=== PATIENT | female | born 1960 | race Asian ===

== ENCOUNTER 2024-12-25 10:08 | Day surgery (SDC) | payer OTHER, SELFPAY ==
[2024-12-25] VITALS (10 sets, daily range): BP systolic 146–170; BP diastolic 69–87; BMI 34.7
[2024-12-25 12:00] LABS: Glucose - Point of Care 109 mg/dl (70-99)
--- NOTE | 2024-12-25 17:40 | ITS.CL.PN ---
Spr[employer]er - Procedure Note
Procedure
Procedure Note:
CARDIAC CATHETERIZATION REPORT
Date of Procedure: 12/25/2024
Referring: Dr. Cullen Neves MD
Indication: symptomatic severe aortic valve stenosis
PROCEDURE(S)
1. right heart catheterization
2. left heart catheterization
3. coronary angiography
ACCESS
1. 6F right radial artery (closure: radial band)
2. 5F right antecubital vein (closure: manual hemostasis)
CATHETERS
1. 5F [place]
2. 6F JR4
3. 6F JL3.5
3. 6F [place]
MODERATE SEDATION: 35 minutes of moderate sedation was utilized. An independent medical office asst was present to assist with and help manage the patient's level of consciousness and physiologic status.
HEMODYNAMIC DATA
LV 191/14 (EDP 21) mmHg
AO 155/83 (mean 115) mmHg
RA 14 mmHg
RV 43/12 (EDP 17) mmHg
PA 41/21 (mean 30) mmHg
PCWP 22 mmHg
SaO2 94.7%
SvO2 64.7%
Hb 11.6 g/dL
CO/CI 4.68/2.64 L/min/m2
SVR 1725 dsc*-5
PVR 1.7 Wood units
Valve Study: Mean gradient of 34.6 mmHg at a heart rate of 80 bpm giving a stroke-volume index of 33 mL/m2 and a calculated valve area of 0.72 cm� (indexed valve area 0.41 cm2/m2)
CORONARY ANGIOGRAPHY
Dominance: Right
LM: Large with no disease.
LAD: Large vessel giving rise to 2 small diagonal branches and wrapping around the apex. There are mild luminal irregularities only.
LCx: Large caliber vessel giving rise to a single large caliber branching OM1. There are mild luminal irregularities only.
RCA: Moderate caliber vessel giving rise to a small RPDA. There are mild luminal irregularities only.
RADIATION: dose 344 mGy; DAP 25.1 Gy*cm2; fluoroscopy time 11.3 min
CONCLUSIONS
1. Trivial coronary artery disease as described
2. Mildly elevated biventricular filling pressures, moderate predominantly postcapillary pulmonary hypertension, and normal cardiac output.
2. Severe low-flow low gradient aortic valve stenosis
RECOMMENDATIONS
1. Proceed with workup for aortic valve replacement with TAVR protocol CT scan including aortic valve calcium scoring to help corroborate severity of low flow low gradient
2. Primary prevention of coronary artery disease
Copy to: Dr. Cullen Neves MD (doll surgeon); Dr. Moon Cam MD (PCP)
Signed: Bert Barnard MD, PhD
== END 2024-12-25 19:15 | disposition home or self-care (01) ==
LOC: CATH 10:08
PROVIDERS: ATTENDING PHYSICIAN Internal Medicine Cardiovascular Disease; FAMILY PHYSICIAN Internal Medicine
DX: I35.0 Nonrheumatic aortic (valve) stenosis (principal); I27.20 Pulmonary hypertension, unspecified; Z79.82 Long term (current) use of aspirin; Z79.84 Long term (current) use of oral hypoglycemic drugs; Z79.899 Other long term (current) drug therapy
CPT/HCPCS: 99152; 99153; C1769 ×2; C1894; 82962; 93460; Q9967

== ENCOUNTER → 2025-01-08 09:14 | Outpatient (REF) | payer OTHER, SELFPAY | LOC: RAD 09:14 | PROVIDERS: ATTENDING PHYSICIAN Nurse Practitioner Acute Care; FAMILY PHYSICIAN Internal Medicine | DX: I35.0 Nonrheumatic aortic (valve) stenosis (principal) | CPT/HCPCS: 74174; 75572; Q9967 ==

== ENCOUNTER 2025-01-26 08:02 | Inpatient (IN) | payer OTHER, SELFPAY ==
[2025-01-19 12:15] VITALS: BMI 34.8
[2025-01-19 12:26] LABS: Hematocrit 37.6 % (37.0-47.0); Hemoglobin 12.4 g/dL (12.0-16.0); Mean Corp Hgb Conc. 33.0 g/dL (33.0-37.0); Mean Corpuscular Volume 77.0 fL (81.0-99.0); Nucleated Red Blood Cells % 0 %; Platelet Count 225 10^3/uL (130-400); Red Cell Dist. Width 14.6 % (11.5-14.5)
[2025-01-19 12:33] LABS: Urine Character Clear (Clear)
[2025-01-19 12:44] LABS: INR 0.99; PT 13.4 Sec (11.4-14.6)
[2025-01-19 12:54] LABS: ALT (SGPT) 22 U/L (0-35); AST (SGOT) 20 U/L (14-36); Albumin 4.5 g/dl (3.5-5.0); Alkaline Phosphatase 118 U/L (38-126); Blood Urea Nitrogen 11 mg/dl (7-17); Calcium 9.6 mg/dl (8.4-10.2); Carbon Dioxide 34 mmol/L (22-30); Chloride 99 mmol/L (98-107); Estimated Creatinine Clearance 87 ml/min; Glucose 183 mg/dl (70-99); Potassium 4.7 mmol/L (3.5-5.1); Sodium 138 mmol/L (135-145); Total Protein 8.3 g/dl (6.3-8.2); eGFR > 60.00
[2025-01-19 12:57] LABS: Glycohemoglobin (HgbA1c) 7.6 % (4.0-5.6)
[2025-01-19 13:20] LABS: Urine Squamous Cell >30 /LPF (Few)
[2025-01-19 13:21] LABS: Urine Urothelial Cell 21-25 /LPF (FEW)
[2025-01-19 13:24] LABS: Urine White Cell 40-50 /HPF (0-5)
[2025-01-19 13:28] LABS: Urine Red Blood Cell 0-2 /HPF (0-2)
--- NOTE | 2025-01-19 14:07 | CM ---
Chart reviewed. Met with the patient, son and daughter in PAT. Reviewed preoperative and postoperative instructions and restrictions, along with showering guidelines. Gave patient 2 soaps. Patient is agreeable to a home visit by CT Transitional
RN. Patient is independent of ADLS, lives with her , 2 daughters and sister in a 2 STH, 2 TRA, 0 DME. Plan is for the patient to return home with CT Transitional RN. CM to follow
[2025-01-26] VITALS (12 sets, daily range): BP systolic 71–166; BP diastolic 54–93; BMI 34.6
[2025-01-26] MEDS: MAGNESIUM OXIDE 400 MG PO (08:42)
[2025-01-26] MEDS: LOPRESSOR 25 MG PO (08:42)
[2025-01-26] MEDS: PROTONIX 40 MG PO (08:42)
[2025-01-26] MEDS: BACTROBAN 2% OINTMENT 1 APPLIC NASAL ×2 (08:44→20:03)
--- NOTE | 2025-01-26 09:12 | PTCARENOTE ---
pt admitted into CVICU room 2268. pt confirmed 2 showers at home. pt clipped and prepped for CVOR. pre-op education provided. pre-op meds given. med rec completed. all questions answered. production mechanic tin cans to CVOR.
--- NOTE | 2025-01-26 09:26 | W.CVOR.SURPR ---
CVOR Surgeon Immed Pre Op
-
I have examined this patient prior to performance of the scheduled procedure.
The patient's condition is unchanged from the time of the dictated/written History and
Physical and the patient is able to undergo the scheduled procedure.
SAVR +/- root enlargement + LAAE
--- NOTE | 2025-01-26 11:43 | CM ---
Chart reviewed Patient is in the OR today. Patient is independent of ADLS, lives with her , 2 daughters and sister in a 2 STH, 2 TRA, 0 DME. Plan is for the patient to return home with CT Transitional RN. CM to follow
[2025-01-26 11:53] LABS: ACT+ - POC 145 Seconds (82-134)
[2025-01-26 12:23] LABS: Urine Character Slightly Cloudy (Clear)
[2025-01-26 12:37] LABS: Urine Squamous Cell >30 /LPF (Few)
[2025-01-26 12:38] LABS: Urine Red Blood Cell 0-2 /HPF (0-2)
[2025-01-26 13:10] LABS: ACT+ - POC 704 Seconds (82-134)
[2025-01-26 13:22] LABS: B.E. - POC 0.3 mmol/L; Glucose - POC 199 mg/dl (70-99); HCO3 - POC 27 mmol/L (21-28); Hematocrit - POC 36 % PCV (37-47); Hemodilution- POC Yes; Hemoglobin Calculated - POC 12.4; Ionized Calcium - POC 1.21 mmol/L (1.15-1.33); Lactate - POC 1.20 mmol/L (0.36-0.75); O2 Saturation %Calculated-POC 99.9 % (94-98); PCO2 - POC 48 mmHg (35-48); PO2 - POC 267 mmHg (83-108); POC Comment PRE; Potassium - POC 3.5 mmol/L (3.5-5.1); Sodium - POC 140 mmol/L (136-145); Specimen Type - POC Arterial; pH - POC 7.35 (7.35-7.45)
[2025-01-26 13:40] LABS: ACT+ - POC 919 Seconds (82-134)
[2025-01-26 13:52] LABS: B.E. - POC 6.2 mmol/L; Glucose - POC 214 mg/dl (70-99); HCO3 - POC 30 mmol/L (21-28); Hematocrit - POC 25 % PCV (37-47); Hemodilution- POC Yes; Hemoglobin Calculated - POC 8.6; Ionized Calcium - POC 0.93 mmol/L (1.15-1.33); Lactate - POC 1.84 mmol/L (0.36-0.75); O2 Saturation %Calculated-POC 99.9 % (94-98); PCO2 - POC 41 mmHg (35-48); PO2 - POC 332 mmHg (83-108); POC Comment CPB; Potassium - POC 4.5 mmol/L (3.5-5.1); Sodium - POC 136 mmol/L (136-145); Specimen Type - POC Arterial; pH - POC 7.48 (7.35-7.45)
[2025-01-26 14:03] LABS: ACT+ - POC 636 Seconds (82-134)
[2025-01-26 14:30] LABS: B.E. - POC 5.8 mmol/L; Glucose - POC 199 mg/dl (70-99); HCO3 - POC 30 mmol/L (21-28); Hematocrit - POC 28 % PCV (37-47); Hemodilution- POC Yes; Hemoglobin Calculated - POC 9.5; Ionized Calcium - POC 1.03 mmol/L (1.15-1.33); Lactate - POC 2.43 mmol/L (0.36-0.75); O2 Saturation %Calculated-POC 99.8 % (94-98); PCO2 - POC 42 mmHg (35-48); PO2 - POC 202 mmHg (83-108); POC Comment WARM; Potassium - POC 4.1 mmol/L (3.5-5.1); Sodium - POC 138 mmol/L (136-145); Specimen Type - POC Arterial; pH - POC 7.46 (7.35-7.45)
[2025-01-26 14:32] LABS: ACT+ - POC 181 Seconds (82-134)
[2025-01-26 14:50] LABS: B.E. - POC 0.2 mmol/L; Glucose - POC 203 mg/dl (70-99); HCO3 - POC 25 mmol/L (21-28); Hematocrit - POC 28 % PCV (37-47); Hemodilution- POC Yes; Hemoglobin Calculated - POC 9.4; Ionized Calcium - POC 1.35 mmol/L (1.15-1.33); Lactate - POC 4.97 mmol/L (0.36-0.75); O2 Saturation %Calculated-POC 99.9 % (94-98); PCO2 - POC 39 mmHg (35-48); PO2 - POC 350 mmHg (83-108); POC Comment POST; Potassium - POC 4.4 mmol/L (3.5-5.1); Sodium - POC 133 mmol/L (136-145); Specimen Type - POC Arterial; pH - POC 7.42 (7.35-7.45)
[2025-01-26 14:51] LABS: ACT+ - POC 126 Seconds (82-134)
--- NOTE | 2025-01-26 15:03 | W.PN.CT.SURG ---
CT Surgery Operative Note
-
CARDIAC SURGERY OPERATIVE REPORT
Preoperative Diagnosis: Bicuspid aortic valve morphology, severe aortic valve stenosis, symptomatic
Postoperative Diagnosis: Same
Procedure(s) Performed:
1. Standard sternotomy with aortic and right atrial cannulation
2. Surgical aortic valve replacement [23 mm bioprosthesis]
3. Placement of temporary atrial ventricular pacing wires
4. Transesophageal echocardiography
Date of Surgery: 01/26/25
Comorbidities:
1. Severe aortic valve stenosis, symptomatic
2. Bicuspid valve morphology, type I
3. Hypertension
4. Hyperlipidemia
5. Diabetes
6. Arthritis
Attending Surgeon: Luiz Landry MD, MS
Assistants: Liudmila Albert PA-C (present and necessary to cutter first, retraction, suction, exposure, suture management, and wound closure under my direction)
Anesthesiology: Osmin Keen MD and Leobardo Smalls CRNA
Scrub and Circulating RNs: Foster Alfonso, HEAVENLY, Mitch Jackson RN
Telecommunications Manager: Fly Hanna CCP
Anesthesia: GETA
EBL: per perfusion records
Products: None
CPB Time: 64 minutes
Aortic Cross Clamp Time: 50 minutes
Indication(s) for Procedures: This is a 64-year-old female with shortness of breath. She was found to have bicuspid valve morphology and severe symptom medic stenosis. She was discussed at our multidisciplinary team clinic and overall consensus
was that she would be better off with a surgical valve as part of her lifetime management
Aortic Valve Description: Monique 1 bicuspid morphology, left right fusion with heavy calcification towards the free margin of the leaflets and the raphae. Some calcification towards the annulus at the noncoronary cusp.
Findings: Her left ventricular ejection fraction preoperatively 60% with no significant regional wall motion abnormalities. Following surgery EF remained the same at 60% but with ventricular pacing she had a mild to moderate degree of mitral valve
insufficiency and a moderate to severe degree of tricuspid valve insufficiency. This improved significantly when she was AV pacing. Her aortic valve was heavily calcified towards the free margin of all cusps with some calcification towards the
raphae at the left right coronary cusp. A total of 11 nonpledgeted 2 Ethibond sutures placed circumferentially to secure a [address] with core knots. She had a trace amount of paravalvular leak before reversal of protamine
which disappeared with protamine. The mean gradient across her new aortic valve was 3 mmHg. She did not require any blood products, she did not require any inotropic support, and she was AV pacing at the conclusion of the case with a very slow
sinus rhythm.
Specimen(s): Aortic valve leaflets.
Prosthesis:
1. 23 mm Maldonado Inspiris Resilia aortic valve, serial #[id number]
Description of Procedure: The patient was taken to the operating room. Their identity and procedure to be performed were verified and they were positioned supine on the operating table. Induction via general anesthesia with endotracheal intubation
was performed and central venous access and arterial monitoring were inserted. A preoperative transesophageal echocardiogram was performed to assess cardiac function and valvular function. The patient was then prepped and draped from chin to feet in
a sterile fashion. A preoperative time-out was performed with all members of the team present. A midline chest incision was performed along with median sternotomy. The innominate vein was isolated. Full heparinization was given (a total of 50,000
units). We created a pericardial well. The aortic cannulation site was chosen where it was soft, pliable, and free of calcium. Cannulation was performed with an arterial cannula in the ascending aorta and a triple-stage venous cannula through the
right atrial appendage. The arterial cannula line had an appropriate bounce and correlating pressures with test dosing. Next, a root vent/antegrade cannula was inserted into the ascending aorta. The ACT was confirmed to be over 400 and retrograde
autologous priming was performed before commencing cardiopulmonary bypass. The pulmonary artery was away from the aorta to facilitate a clamp site and aortotomy. A left ventricular vent was placed at the right superior pulmonary vein and
secured. The aortic cross-clamp was placed after decreasing the flow on the bypass and mean arterial pressure. A total of 1.0L initial dose of antegrade Del-Nido cardioplegia solution was given and planned for re-dosing every 75 minutes as
necessary. There was rapid electro-mechanical arrest of the heart at 290 cc of cardioplegia. The left ventricle was observed for distention on echocardiogram and manual palpation. Cold slush was placed into a sponge and topically on the RV while we
systemically cooled to 34 degrees centigrade.
Carbon dioxide was used to flood the field. We manually identified the location of the right coronary take off. An aortotomy was made approximately 2cm above the sinotubular junction. The location of both left and right coronary vessels were
visualized in the root. The leaflets were excised and sent for pathological assessment. The annulus was debrided of any calcium being mindful of the annulus and membranous septum. The root and left ventricular outflow tract were thoroughly irrigated
to remove any debris. A total of 11 non-pledgeted 2-0 ethibond inverted annular sutures were placed [id number] circumferentially. These were brought through the sewing cuff of the prosthetic valve which as then parachuted into place. The left and
right coronary ostia were visualized and were unobstructed by the valve. A Cor-Knot device was used to secure the annular sutures. The valve was inspected and was well seated. The aortotomy was approximated with 4-0 prolene in two layers. De-airing
maneuvers were performed and temporary bipolar ventricular pacing wires were placed on the base of the right ventricle along with temporary atrial pacing wires at the SVC right atrial junction. The patient was placed in a Trendelenburg position and
flows on bypass were lowered. The aortic cross clamp was removed and flows were slowly brought back up. The aortotomy appeared hemostatic. Transesophageal echocardiography revealed no paravalvular leak and appropriate prosthetic function. Once
de-airing was satisfactory, the left ventricular and root vents were removed. After verifying acceptable parameters, we initiated weaning from cardiopulmonary bypass. Once we were off cardiopulmonary bypass, the venous cannula was clamped and
removed. A test dose of protamine was administered and the patient was monitored for any adverse reaction before resuming protamine. Once half of the protamine dose was delivered, pump suckers were turned off and the systolic blood pressure was
lowered for aortic decannulation. The aortic cannula was removed and pursestrings were tied down. All cannulation sites were oversewn with a 4-0 prolene. The aortotomy suture line was inspected and hemostasis was confirmed. Mediastinal hemostasis
was obtained. Two 24Fr Arie drains were placed within the pericardium. The sternum was approximated with 4#7 single and 3 #8 double stainless steel wires. Fascia was approximated with #1 vicryl suture. The subcutaneous, dermis and epidermis were
closed in layers in a running fashion. The skin wound was cleansed and dressed.
All instrument, sponge, and needle counts were confirmed to be correct x 2 at the end of the operation. The patient was transferred to the cardiac intensive care unit in critical but stable condition.
I, Dr. Luiz Landry, was present, scrubbed for, and performed all critical elements of this procedure.
Luiz Landry MD, MS
Cardiothoracic Surgeon
[facility]
This operative dictation was created using the [employer] dictation system. Please excuse any grammatical, typographical, or 'sound alike' errors
--- NOTE | 2025-01-26 15:17 | CON.INTV ---
Consultation
Consultation Request
Date/Time Consultation Requested: 01/26/2025 - 1438
Date/Time Consultation Performed: 01/26/2025 - 1501
Requesting Provider: Maritza Heck NP
Performing Provider: Dr. Del Cid
Reason for Consultation: s/p SAVR
Medical History
-
Chief Complaint: Elective aortic valve replacement
History of Present Illness:
64-year-old female with a past medical history of hypertension, hyperlipidemia, DM type II and arthritis who presents for elective aortic valve replacement. Patient known to the cardiothoracic surgery service, with last visit on 01/11/2025 with
Gris. Echo on 12/08/2024 showed mild�moderately hypertrophic LV with an EF of 65-70%, with heavily calcified aortic valve with reduced leaflet excursion, and mean gradient across the AV of 39.9. Left and right heart catheterization on 12/25/2024
showed a mean gradient across the aortic valve of 34.6, with trivial coronary artery disease and mildly elevated biventricular filling pressures with moderate predominantly postcapillary pulm hypertension and preserved cardiac output. She was
diagnosed with severe low-flow, low gradient aortic valve stenosis. Patient has been feeling shortness of breath with flight of steps and with light activity, with worsening SOB over the last year. Surgical intervention recommended and the patient
agreed to this procedure. Today, she underwent surgical aortic valve replacement with a 23 mm bioprosthesis. There were no immediate complications, and she was transferred to the CVICU postoperatively, with [employer] services consulted for
additional management/recommendations.
When I saw the patient, she was intubated on SIMV at 16/450/40%/5, with PIP 28 cmH2O, breathing at 16 breaths/min and VTe 450 cc. Currently on insulin drip at 4 units/hr, Levophed at 2 mcg/min, and sedated on Precedex at 0.5 mcg/kg/hr. She is AV
paced, otherwise she was bradycardic. Current heart rate 72, BP via A-line 93/52, PAP 25/15 and she is saturating 97%.
PMHx: Hypertension, hyperlipidemia, DM type II, arthritis
PSHx:
Past Medical History
Past Medical History: Other (Above as per HPI)
Past Surgical History: Other (Above as per HPI)
Social History
Tobacco: Non-smoker
Alcohol: None
Drug: None
Personal:
Living: With Family
Employment: Not Employed (Homemaker; now retired)
Family History
Family History: CAD (Brother (stent placed at age 45)) and Cancer (Mother: Breast cancer)
Allergies / Home Medications
Allergies
Allergy/AdvReac Type Severity Reaction Status Date / Time
almond Allergy GERD itchy Verified 01/18/25 15:49
throat/ears
apple Allergy GERD, Verified 01/18/25 15:49
itchy
throat/ears
atorvastatin Allergy Rash Verified 01/18/25 15:49
carrot Allergy GERD, Verified 01/18/25 15:49
itchy
throat/ears
martinez Allergy GERD itchy Verified 01/18/25 15:49
throat/ears
pecan nut Allergy GERD itchy Verified 01/18/25 15:49
throat/ears
Penicillins Allergy rash/hives Verified 01/18/25 15:49
lisinopril AdvReac cough Verified 01/18/25 15:49
Home Medications
�Medication �Instructions �Recorded �Confirmed �Last Taken �Type
amlodipine 5 mg tablet 10 mg PO DAILY Blood Pressure 12/25/24 01/26/25 01/25/25 21:00 History
aspirin 81 mg tablet 81 mg PO DAILY Blood Clot 12/25/24 01/26/25 01/24/25 21:00 History
Prevention/Tx
empagliflozin 25 mg tablet 25 mg PO DAILY Diabetes 12/25/24 01/26/25 01/11/25 History
(Jardiance)
glimepiride 4 mg tablet 4 mg PO BID Diabetes 12/25/24 01/26/25 01/24/25 21:00 History
hydrochlorothiazide 25 mg tablet 25 mg PO DAILY Blood Pressure 12/25/24 01/26/25 01/24/25 21:00 History
metformin 1,000 mg tablet 1,000 mg PO DAILY Diabetes 12/25/24 01/26/25 01/24/25 21:00 History
Held on 12/25/24.
Instructions: Resume on
12/27/24.
omeprazole 20 mg capsule,delayed 20 mg PO DAILY Gastrointestinal 12/25/24 01/26/25 01/24/25 21:00 History
release Issue
rosuvastatin 20 mg tablet 20 mg PO DAILY High Cholesterol 12/25/24 01/26/25 01/25/25 21:00 History
triamcinolone acetonide 0.5 % 1 applic topical BID Rash 12/25/24 01/26/25 01/05/25 History
topical cream
acetaminophen 325 mg tablet 325 mg PO ONCE PRN pain 01/18/25 01/26/25 01/05/25 History
(Tylenol)
cyanocobalamin (vitamin B-12) 1,000 mcg PO DAILY Supplement 01/18/25 01/26/25 01/24/25 21:00 History
1,000 mcg tablet
semaglutide 2 mg/dose (8 mg/3 mL) 2 mg SC QWEEK Diabetes 01/26/25 01/26/25 01/11/25 History
subcutaneous pen injector (Ozempic)
Review of Systems
-
Unable to Obtain full review of systems at this time due to: Patient Intubation
Vitals / Labs / Diagnostic Testing
Vital Signs
Temp Pulse Resp BP Pulse Ox
98.9 F 70 16 83/62 99
01/26/25 21:00 01/26/25 21:00 01/26/25 21:00 01/26/25 21:00 01/26/25 21:00
Lab Data
01/26/25 19:14
01/26/25 15:45
Laboratory Results
01/26/25
15:45
PT 18.7 H
INR 1.54
APTT 35.6 H
pH 7.41
pCO2 41 H
pO2 115 H
HCO3 26.0
O2 Delivery Level
Diagnostic Testing:
Physical Exam
-
HEENT: Normocephalic, Anicteric and Other (ETT in place)
Cardiovascular: S1/S2, Irregular Rhythm (Irregular at times), Peripheral Edema (negative) and Other (AV paced)
Respiratory: Wheeze (negative), Rales (negative), Rhonchi (negative), Non-Labored Respirations and Other (Mechanical breath sounds heard bilaterally)
GI: Soft, Non Distended, Non Tender and Normal Bowel Sounds
Neurology: Tremors (negative) and Other (Sedated)
Skin: Warm and Dry
General: Respiratory Distress (negative), Comfortable, Fever (negative) and Chills (negative)
Assessment
-
Assessment: 64-year-old female with a past medical history of hypertension, hyperlipidemia, DM type II and arthritis who presents for elective aortic valve replacement. Patient known to the cardiothoracic surgery service, with last visit on
01/11/[address] Landry. Echo on 12/08/2024 showed mild�moderately hypertrophic LV with an EF of 65-70%, with heavily calcified aortic valve with reduced leaflet excursion, and mean gradient across the AV of 39.9. Left and right heart
catheterization on 12/25/2024 showed a mean gradient across the aortic valve of 34.6, with trivial coronary artery disease and mildly elevated biventricular filling pressures with moderate predominantly postcapillary pulm hypertension and preserved
cardiac output. She was diagnosed with severe low-flow, low gradient aortic valve stenosis. Patient has been feeling shortness of breath with flight of steps and with light activity, with worsening SOB over the last year. Surgical intervention
recommended and the patient agreed to this procedure. On 01/26/2025, she underwent surgical aortic valve replacement with a 23 mm bioprosthesis. There were no immediate complications, and she was transferred to the CVICU postoperatively, with
[employer] services consulted for additional management/recommendations.
Chronic conditions TITLE INSPECTOR: Hypertension, hyperlipidemia, DM type II, arthritis
Impression:
#Bicuspid aortic valve morphology with severe, symptomatic aortic valve stenosis s/p surgical aortic valve replacement with 23 mm bioprosthesis (POD #0)
#Acute anemia due to above
#DM type II complicated by hyperglycemia (mild)
#Hypertension
#Hyperlipidemia
#Multinodular thyroid goiter causing slight displacement/compression of the esophagus and trachea to the right (per CT TAVR on 01/08/2025)
Plan:
Ventilator settings reviewed
FiO2 will be weaned to maintain SpO2 >90-94%
Minute ventilation will be adjusted
Arterial blood gases will be monitored
Spontaneous breathing trial will be attempted with hopeful extubation after anesthesia/sedation wear off
prn nebulized bronchodilators - not currently bronchospastic
Pulmonary artery catheter parameters will be followed
Pressors/antihypertensive/inotropes/diuretics will be provided as needed
Maintain MAP>65
Replete electrolytes with K>4, Mg>2
Monitor chest tube output
Monitor hemoglobin
Monitor platelet count and coags
Transfuse blood products as needed to maintain Hb>7g/dL, plt>50k (given post-operative status)
CT surgery managing chest tubes
Monitor blood sugar to maintain euglycemia with goal BG 110-140
Insulin drip per protocol
Aspiration precautions
VAP prevention protocol
DVT prophylaxis
Early nutrition
Early mobilization
Critical care statement: A total of 38 minutes of critical care time was provided for this patient today. This includes management of ventilator, spontaneous breathing trial, arterial blood gases, pressors, of unstable vital signs, evaluation of the
patient at bedside, reviewing the patient's pertinent medical records including radiographs, microbiology, laboratory evaluations, and discussion with primary team and critical care nursing.
Data:
CT TAVR 01/08/2025:
Multinodular thyroid goiter with mediastinal extension.
Hepatic steatosis.
Probable simple 1.4 cm right ovarian cyst. No dedicated follow-up is indicated per the 2019 Society of Radiologists in Ultrasound consensus statemen
[2025-01-26 15:45] LABS: Glucose - Point of Care 173 mg/dl (70-99)
[2025-01-26] MEDS: LR 250 ML IV (15:55)
[2025-01-26] MEDS: NSS 500 IV (15:55)
[2025-01-26] MEDS: NOVOLOG FLEXPEN SC ×2 (15:55→15:57)
[2025-01-26] MEDS: NEURONTIN PO ×2 (15:56→22:01)
[2025-01-26] MEDS: STERILE WATER FOR INJECTION 10 ML IV ×2 (15:56)
[2025-01-26] MEDS: PACERONE PO ×2 (15:56→22:01)
[2025-01-26] MEDS: VANCOCIN 200 IV (15:56)
[2025-01-26] MEDS: TYLENOL PO ×2 (15:56→22:02)
[2025-01-26] MEDS: AZACTAM 2000 MG IV ×2 (15:56)
[2025-01-26 15:57] LABS: B.E. 1.2 mmol/L; HCO3 26.0 mmol/L (21-28); O2 Saturation % 98.4 % (94-98); PCO2 41 mmHg (32-35); PO2 115 mmHg (83-108); Potassium 3.9 mMOL/L (3.5-5.1); Sodium 136 mMOL/L (136-145)
[2025-01-26 16:04] LABS: Hematocrit 28.1 % (37.0-47.0); Hemoglobin 9.2 g/dL (12.0-16.0); Platelet Count 162 10^3/uL (130-400)
[2025-01-26 16:09] LABS: INR 1.54; PT 18.7 Sec (11.4-14.6)
[2025-01-26 16:10] LABS: APTT 35.6 Sec (23.4-35.0)
[2025-01-26] MEDS: KCL 50 IV (16:19)
[2025-01-26 16:22] LABS: Blood Urea Nitrogen 11 mg/dl (7-17); Estimated Creatinine Clearance 87 ml/min; Glucose 170 mg/dl (70-99); Magnesium 2.7 mg/dl (1.6-2.3)
--- NOTE | 2025-01-26 16:35 | PTCARENOTE ---
assumed care of pt from CVOR into 2267, AV paced on tele via epicardial pacing wires which are set to DDI 72/17/20. + peripheral pulses, trace edema. Right IJ cordis w swan floated to 42. MARU CI/CO do to MARU tblood temp. PAP 28/14, CVP 10. LEft
radial deborah leveled and zeroed, bp 111/65. Lungs diminished, #8 ETT/ 22cm at right lip, VENT SETTINGS: SIMV 40%/450/16/+5 POX 99%. Mediastinal CTs x2 w red drainage. [place] draining clear yellow. CPOT 0 RASS -5.
Drips: Precedex 0.5 mcg/kg/hr
Insulin titrated per glycemic protocol
[2025-01-26 16:57] LABS: Glucose - Point of Care 184 mg/dl (70-99)
[2025-01-26 17:56] LABS: Glucose - Point of Care 165 mg/dl (70-99)
[2025-01-26 18:58] LABS: Glucose - Point of Care 172 mg/dl (70-99)
[2025-01-26 19:16] LABS: Glucose - Point of Care 174 mg/dl (70-99)
--- NOTE | 2025-01-26 19:24 | PTCARENOTE ---
CHG bath completed, pt awakens to tactile stimuli and follows commands.
[2025-01-26 19:39] LABS: Hematocrit 28.2 % (37.0-47.0); Hemoglobin 9.1 g/dL (12.0-16.0); Platelet Count 197 10^3/uL (130-400)
[2025-01-26 19:56] LABS: Glucose - Point of Care 169 mg/dl (70-99)
[2025-01-26] MEDS: SENOKOT PO (20:03)
--- NOTE | 2025-01-26 20:12 | PTCARENOTE ---
assumed care of pt from previous rn. PT intubated, arouses to verbal stimuli. able to follow all commands, drowsy. NSR per tele monitor HR 70s. A/V wires set to a back up of DDI 70/17/20. +pulses PAP 20s/10s CVP ~ 10. ETT 8.0/22 at the lip. Vent
settings. SIMV 40%/450/16/5. pox 100% lungs diminished at bases. CTx2 set to -20 cm suction. no air leaks/tidaling/crepitus. hypoactive bs. Street draining adequate clear yellow urine. Sternal incision intact and tiesha. CT dressing c/d/i. RIJ cordis w/
swan floated to 42. L radial a-line intact. All lines leveled, zeroed and flushed. PIV intact infusing insulin per glycemic protocol. see worklist for full nursing assessment and nursing interventions.
gtts:
Levo 3 mcg/min
Insulin
[2025-01-26] MEDS: ASPIRIN 300 MG RECTAL (21:24)
[2025-01-26 21:54] LABS: Glucose - Point of Care 153 mg/dl (70-99)
[2025-01-26] MEDS: ZOFRAN 4 MG IV (22:55)
[2025-01-26 23:59] LABS: Glucose - Point of Care 140 mg/dl (70-99)
[2025-01-27] VITALS (37 sets, daily range): BP systolic 70–125; BP diastolic 43–76; PULSE 87; O2SAT 98; BMI 35.5
[2025-01-27 00:53] LABS: Glucose - Point of Care 137 mg/dl (70-99)
[2025-01-27] MEDS: OFIRMEV 100 IV (01:15)
[2025-01-27] MEDS: TORADOL 15 MG IV ×4 (02:19→20:20)
[2025-01-27] MEDS: VANCOCIN 200 IV ×2 (02:19→13:59)
[2025-01-27] MEDS: NOVOLIN R INSULIN INFUSION 100 IV (02:50)
--- NOTE | 2025-01-27 03:01 | PTCARENOTE ---
pt extubated @ 0150 to 6L NC w/o issue. pox 100%. able to follow all commands and state name and .
[2025-01-27 03:13] LABS: Glucose - Point of Care 140 mg/dl (70-99)
[2025-01-27 03:59] LABS: Glucose - Point of Care 123 mg/dl (70-99)
[2025-01-27 04:19] LABS: Hematocrit 25.4 % (37.0-47.0); Hemoglobin 8.2 g/dL (12.0-16.0); Mean Corp Hgb Conc. 32.3 g/dL (33.0-37.0); Mean Corpuscular Volume 80.9 fL (81.0-99.0); Platelet Count 148 10^3/uL (130-400); Red Cell Dist. Width 15.1 % (11.5-14.5)
[2025-01-27 04:36] LABS: Blood Urea Nitrogen 15 mg/dl (7-17); Calcium 8.4 mg/dl (8.4-10.2); Carbon Dioxide 26 mmol/L (22-30); Chloride 108 mmol/L (98-107); Estimated Creatinine Clearance 87 ml/min; Glucose 154 mg/dl (70-99); Magnesium 2.2 mg/dl (1.6-2.3); Potassium 4.1 mmol/L (3.5-5.1); Sodium 138 mmol/L (135-145); eGFR > 60.00
--- NOTE | 2025-01-27 04:50 | PTCARENOTE ---
AM labs and EKG obtained. Pt w/ minimal UO, CTPA made aware. NSR per tele monitor HR 80s. VSS. pox 98% on 4L NC.
[2025-01-27] MEDS: ROXICODONE 2.5 MG PO (04:59)
[2025-01-27 06:11] LABS: Glucose - Point of Care 114 mg/dl (70-99)
[2025-01-27] MEDS: TYLENOL PO (06:12)
--- NOTE | 2025-01-27 08:04 | W.PN.ANS.POP ---
Anesthesia Post Operative
- Anesthesia Post Op Note
Vital Signs Stable-See Nursing Note: Yes (pt remains on Cardene)
Airway Patent: Yes
Adequate Pain Control: Yes
Change in Mental Status: No
Current Postoperative Nausea & Vomiting: No
Anesthesia Complications: No
General Anesthetic Recall: No
Unplanned Admission: No
Post Op Hydration Adequate: Yes
--- NOTE | 2025-01-27 08:21 | W.PN.INTV ---
Today's Communication / Plan
Recommendations
Continue insulin drip per protocol
Goal BG 110�140
Continue dobutamine drip, weaning down as tolerated while trending MVO2 with goal >60�65, and maintain MAP >65-70
Pain control
Encourage incentive spirometer
Removal of mediastinal chest tubes per CT surgery team
Local Owner Operator Truck Driver service will continue to follow along while patient remains in the CVICU
Assessment
-
Assessment: 64-year-old female with a past medical history of hypertension, hyperlipidemia, DM type II and arthritis who presents for elective aortic valve replacement. Patient known to the cardiothoracic surgery service, with last visit on
01/11/[address] Landry. Echo on 12/08/2024 showed mild�moderately hypertrophic LV with an EF of 65-70%, with heavily calcified aortic valve with reduced leaflet excursion, and mean gradient across the AV of 39.9. Left and right heart
catheterization on 12/25/2024 showed a mean gradient across the aortic valve of 34.6, with trivial coronary artery disease and mildly elevated biventricular filling pressures with moderate predominantly postcapillary pulm hypertension and preserved
cardiac output. She was diagnosed with severe low-flow, low gradient aortic valve stenosis. Patient has been feeling shortness of breath with flight of steps and with light activity, with worsening SOB over the last year. Surgical intervention
recommended and the patient agreed to this procedure. On 01/26/2025, she underwent surgical aortic valve replacement with a 23 mm bioprosthesis. There were no immediate complications, and she was transferred to the CVICU postoperatively, with
Local Owner Operator Truck Driver services consulted for additional management/recommendations.
Chronic conditions UNSTACKER: Hypertension, hyperlipidemia, DM type II, arthritis
Impression:
#Bicuspid aortic valve morphology with severe, symptomatic aortic valve stenosis s/p surgical aortic valve replacement with 23 mm bioprosthesis (POD #1)
#Acute anemia due to above
#DM type II complicated by hyperglycemia (mild)
#Hypertension
#Hyperlipidemia
#Multinodular thyroid goiter causing slight displacement/compression of the esophagus and trachea to the right (per CT TAVR on 01/08/2025)
Plan:
Patient extubated overnight on 01/27/2025, and currently breathing comfortably on 2 L/min nasal cannula saturating 95%
Continue weaning down supplemental O2 flow rate while keeping SpO2 >90-94%
prn nebulized bronchodilators - not currently bronchospastic
Encourage incentive spirometer use q1hr while awake
Pulmonary artery catheter parameters will be followed
Pressors/antihypertensive/inotropes/diuretics will be provided as needed
Maintain MAP>65
Replete electrolytes with K>4, Mg>2
Monitor chest tube output (mediastinal chest tubes x 2)
Monitor hemoglobin
Monitor platelet count and coags
Transfuse blood products as needed to maintain Hb>7g/dL, plt>50k (given post-operative status)
CT surgery managing chest tubes
Monitor blood sugar to maintain euglycemia with goal BG 110-140
Insulin drip per protocol
Aspiration precautions
DVT prophylaxis
Early nutrition
Early mobilization
Critical care statement: A total of 38 minutes of critical care time was provided for this patient today. This includes management of ventilator, spontaneous breathing trial, arterial blood gases, pressors, of unstable vital signs, evaluation of the
patient at bedside, reviewing the patient's pertinent medical records including radiographs, microbiology, laboratory evaluations, and discussion with primary team and critical care nursing.
Data:
CT TAVR 01/08/2025:
Multinodular thyroid goiter with mediastinal extension.
Hepatic steatosis.
Probable simple 1.4 cm right ovarian cyst. No dedicated follow-up is indicated per the 2019 Society of Radiologists in Ultrasound consensus statemen
Subjective Dataa
Subjective Data
Date of Service:
Date of Service: January 27, 2025
Chief Complaint: Local Owner Operator Truck Driver Follow Up
Subjective:
Patient seen and evaluated today at bedside. On insulin drip at 1.1 unit/hr and dobutamine at 2.5 mcg/kg/min. Heart rate 88, BP 100/50, and saturating 95% on 2 L/min. Mediastinal chest tubes x [address]. She is resting in bed no acute distress,
denying LOZA, SOB, fevers or chills.
Review of Systems
General: Other (Negative unless mentioned above)
Objective Data
Data Reviewed
Vital Signs / I&O / Oxygen:
Vital Signs
Temp Pulse Resp BP Pulse Ox
97.9 F 84 16 99/62 98
01/27/25 12:00 01/27/25 13:15 01/27/25 13:00 01/27/25 13:00 01/27/25 13:15
Intake and Output
01/26/25 01/27/25 01/28/25
06:59 06:59 06:59
Intake Total 2042.9 / 2078.9 371.3 / 371.3
Output Total 1100 / 1135 190 / 190
Balance 942.9 / 943.9 181.3 / 181.3
SaO2 [SIMV] 99
SaO2 98
Nasal Cannula flow liters per 2
minute
Physical Exam
General: Respiratory Distress (negative), Comfortable and Chills (negative)
HEENT: Normocephalic and Anicteric
Cardiovascular: S1-S2 and Peripheral Edema (negative)
Respiratory: Wheeze (negative), Crackles (negative), Rhonchi (negative), Non-Labored Respirations, Stridor (negative) and Chest Tube (Mediastinal chest tubes x 2)
GI: Soft, Distended (Abdominal obesity), Non Tender and Normal Bowel Sounds
Neurology: Awake, Alert and Tremors (negative)
Skin: Warm, Dry, Cyanosis (negative) and Jaundice (negative)
Labs/Micro/Reports
Lab Data
01/27/25 03:57
01/27/25 03:57
Laboratory Results
01/26/25
15:45
PT 18.7 H
INR 1.54
APTT 35.6 H
pH 7.41
pCO2 41 H
pO2 115 H
HCO3 26.0
O2 Delivery Level
--- NOTE | 2025-01-27 08:30 | PTCARENOTE ---
Assumed care of patient. Walking rounds completed with previous RN. Pt assessed while she was lying in bed. Pt alert and oriented x4. Pt c/o slight sternal pain, see MAR. Denies nausea and shortness of breath. HI with equal strength throughout. NSR
on tele with rates in the 80s. BP controlled with Cardene. Cuff BP ~20mmHg lower than deborah. PA pressures 30s/20s. CVP 18. Bilateral radial and DP pulses palpable. +1 generalized edema. Heart tones audible. Epicardial AV wires to back up, no pacing
noted. POX97% on 4L NC, titrated to 2L NC, POX 96%. Bilateral lungs diminished in the bases. Occasional dry, nonproductive cough noted. Mediastinal chest tubes x2 y-sited to 1 atrium to -20cm suction draining serosanguineous fluid. No air leaks,
tidaling, crepitus noted. Abdomen soft, round, obese. Hypoactive BS. Pt denies passing gas at this time. Street catheter intact draining inadequate amounts of clear yellow urine. Sternal incision approximated, CR. Chest tube dressing CDI, dressing
changed. Right IJ cordis and swan floated to 42cm. Left radial deborah intact with appropriate waveform. Left AC 18g PIV intact. See MAR for medication administration. See worklist for complete nursing assessment. Plan of care reviewed and patient in
agreement.
[2025-01-27 08:36] LABS: Glucose - Point of Care 100 mg/dl (70-99)
--- NOTE | 2025-01-27 08:50 | W.PN.CT ---
Today's Communication / Plan
-
-pod #1
-extubated uneventfully at 1:50 am
-nsr 70s overnight with occasional av-pacing
-kept sbp 90-110 overnight, liberate today to 90-130
-mvO2 58.8. Drips: Cardene 5, Insulin
-CT outputs: 2 meds 140/250 in 12/24 hrs
-got total 1250 LR postop
-follow Hg - 8.2 today
-Cr stable - 0.6 today
-maintain Cordis, pw
-encourage IS, OOB
Assessment / Plan
-
- Bicuspid aortic valve morphology, severe aortic valve stenosis, symptomatic- s/p Surgical aortic valve replacement [23 mm Maldonado Inspiris Resilia bioprosthesis] by Dr. Landry on 01/26/25, pod #1
- Severe aortic valve stenosis, symptomatic
- Bicuspid valve morphology, type I
- Hypertension
- Hyperlipidemia
- Diabetes (A1c 7.6)
- Arthritis
- Acute postop blood loss anemia
- Acute postop atelectasis
- Acute postop hypovolemia with subsequent hypervolemia
Discussed patient care with: Nursing and Care Team
Subjective
-
Date of Service: January 27, 2025
Objective Data
-
Lab Results
01/27/25 03:57
01/27/25 03:57
PT 18.7 Sec (11.4-14.6) H 01/26/25 15:45
INR 1.54 01/26/25 15:45
APTT 35.6 Sec (23.4-35.0) H 01/26/25 15:45
Vital Signs
Vital Signs
Temp Pulse Resp BP Pulse Ox
97.6 F 87 16 123/62 97
01/27/25 07:00 01/27/25 07:15 01/27/25 07:15 01/27/25 07:00 01/27/25 07:15
CT Intake/Output/Weight
01/26/25 01/27/25 01/27/25
18:59 06:59 18:59
Intake Total 393.0 / 2078.9 1649.9 / 2078.9 36.0 / 36.0
Output Total 620 / 1135 480 / 1135 35 / 35
Balance -227.0 / 943.9 1169.9 / 943.9 1.0 / 1.0
SaO2: 97
Physical Exam
-
General: Awake and AOx3
Cardiovascular: Regular rate & rhythm, No Murmurs and No Rub
Respiratory: Decreased Breath Sounds
Sternum: Stable
Incision: Clean, Dry and Intact
Extremities: No Edema (2+ DPs b/l)
Abdomen: soft, nontender, nondistended, + decreased bowel sounds
Data Reviewed
-
Lab Results: Results Reviewed
Medications: Active Meds Reviewed
Chest X-Ray: Report Reviewed and Image Reviewed
ECG: Report Reviewed and Image Reviewed
[2025-01-27] MEDS: BACTROBAN 2% OINTMENT 1 APPLIC NASAL ×2 (08:51→20:19)
[2025-01-27] MEDS: PROTONIX 40 MG PO (08:51)
[2025-01-27] MEDS: SENOKOT 8.6 MG PO ×2 (08:51→22:44)
[2025-01-27] MEDS: CRESTOR 20 MG PO (08:52)
[2025-01-27] MEDS: LIDOCAINE 4% PATCH 1 PATCH TOPICAL (08:52)
[2025-01-27] MEDS: PACERONE 200 MG PO ×3 (08:52→22:45)
[2025-01-27] MEDS: LOPRESSOR 12.5 MG PO (08:52)
[2025-01-27] MEDS: MAGNESIUM OXIDE 400 MG PO ×2 (08:52→20:20)
[2025-01-27] MEDS: NEURONTIN 100 MG PO ×3 (08:52→22:44)
[2025-01-27] MEDS: LOW STRENGTH ASPIRIN 81 MG PO (08:52)
--- NOTE | 2025-01-27 09:15 | PTCARENOTE ---
Right IJ swan d/c and Left radial deborah d/c as per orders. New dressings applied. Pt tolerated.
--- NOTE | 2025-01-27 09:30 | W.PN.CD ---
Addendum entered and electronically signed by Jayjay Lewis MD 01/27/25 11:55:
I saw and evaluated the patient, and I provided the substantive portion of the medical decision making.
I reviewed and agree with the note by AYUSH Lim and it accurately reflects our care.
I personally performed the medical decision making of the this encounter and my assessment and plan is below:
Status postsurgical biologic AVR on 01/26/2025. Making good postsurgical progress. Mild postoperative anemia.
Hemoglobin 8.2.
Rhythm looks good. EKG looks good.
Original Note:
Today's Communication / Plan
-
Continue amiodarone and metoprolol and follow telemetry
Encourage IS and OOB as tolerated per protocol
Impression / Plan
-
64 y/o female (patient of Dr. Sanchez) with hypertension, diabetes, hyperlipidemia, obesity, and bicuspid aortic valve with severe aortic stenosis is now s/p bio AVR with Dr. Landry 01/26/25:
Bicuspid aortic valve with severe aortic stenosis:
-now s/p surgical bio AVR, Dr. Landry 01/26/25
-post op EKG and tele SR-on BB and amiodarone- continue
-Street, CT's, pacer wire in place
-on O2 by NC
-remains on insulin drip per protocol- this requires intensive monitoring
-on ASA
-post-op anemia is noted- monitor closely per CTS
HTN:
-stable
-monitor post-op
-on HCTZ and CCB as OP
HLD:
-statin
DM2
-on insulin drip post-op per protocol
Physical Exam
Vital Signs/Labs
Vital Signs
Temp Pulse Resp BP Pulse Ox
97.6 F 87 16 123/62 97
01/27/25 07:00 01/27/25 07:15 01/27/25 07:15 01/27/25 07:00 01/27/25 08:57
01/26/25 01/27/25 01/28/25
06:59 06:59 06:59
Actual Weight 82.5 kg
01/27/25 03:57
01/27/25 03:57
PT 18.7 Sec (11.4-14.6) H 01/26/25 15:45
INR 1.54 01/26/25 15:45
APTT 35.6 Sec (23.4-35.0) H 01/26/25 15:45
Magnesium 2.2 mg/dl (1.6-2.3) 01/27/25 03:57
Physical Exam
Constitutional: No acute distress
EENT: Anicteric
Cardiovascular: Rhythm & rate is regular
Respiratory: Respiratory effort normal, Lungs clear to auscul. and Other (on O2 by NE)
Neuro/Psych: AO x 3
Other: Skin (midsternal chest incision without redness, drainage, swelling- well-approximated)
Data Reviewed
-
Date of Service: January 27, 2025
EKG: Tracing Personally Visualized and interpreted
X-Ray/CT/US/MRI/NUC/PET: Report Reviewed by me (CXR: The endotracheal tube has been removed. Stable position of the [place] catheter and chest tubes/mediastinal drains. Low lung volumes. Bibasilar subsegmental atelectasis. No focal consolidation,
pleural effusion, or pneumothorax. Aortic valve prosthesis. Stable cardiomediastinal silhouett)
Labs: Labs Reviewed by me
[2025-01-27 10:19] LABS: Glucose - Point of Care 112 mg/dl (70-99)
[2025-01-27] MEDS: ZOFRAN 4 MG IV (10:38)
[2025-01-27] MEDS: NOVOLOG FLEXPEN 4 UNITS SC ×3 (10:40→17:41)
--- NOTE | 2025-01-27 10:47 | CM ---
Chart reviewed. Patient lying in bed, family at bedside. Patient is independent of ADLS, lives with her , 2 daughters and sister in a 2 STH, total of 3 TRA, 0 DME. Plan is for the patient to return home with CT Transitional RN. CM to
follow
[2025-01-27] MEDS: NSS IV (10:56)
[2025-01-27] MEDS: FLEXBUMIN 100 IV ×2 (11:05→20:18)
[2025-01-27 11:48] LABS: Hepatitis C Antibody Negative (Negative)
--- NOTE | 2025-01-27 12:15 | PTCARENOTE ---
Pt reassessed. Pt c/o 10/15 sternal pain, pt repositioned and medications administered-See JUN. NSR on tele with rates in the 80s. BP 90/58, pt denies dizziness while sitting. POX 97% on 1L NC, titrated to RA, POX 91-92%. Surgical sites stable. CT
output WNL. Street continues to drain clear yellow urine 15ml/hr, ct forestry aid notified.
[2025-01-27 12:24] LABS: Glucose - Point of Care 98 mg/dl (70-99)
[2025-01-27] MEDS: ROXICODONE 5 MG PO (12:26)
[2025-01-27] MEDS: FLEXERIL 5 MG PO (12:26)
[2025-01-27 13:44] LABS: Glucose - Point of Care 99 mg/dl (70-99)
[2025-01-27] MEDS: DOBUTREX 250 IV (13:45)
--- NOTE | 2025-01-27 13:45 | PTCARENOTE ---
MVO2 resulted, dobutamine initiated as per orders. Pt assisted back to bed with 2 assist, tolerated.
--- NOTE | 2025-01-27 13:45 | PN.DE.MGMTRT ---
Insulin Management
- -
01/27/2025 Diabetes Management Consult
Patient admitted 01/26 for aortic valve replacement. PMH HTN, HLD, diabetes, arthritis, severe aortic valve stenosis. Prior to admission was taking glimepiride 4 mg daily, Jardiance 25 mg daily, metformin 1000 BID and Ozempic once weekly. A!C on
admission 7.6%, cr .6, eGFR > 60.
POD 1 s/p Aortic valve replacement. Patient is awake alert and oriented sitting out of bed in chair, family at bedside very supportive. Patient glucose 140 to 114 receiving critical care glycemic protocol at .5 to 4.5 units of insulin per hour.
Will continue critical care glycemic protocol today and assess for readiness to transition to home regimen.
Discussed with nurse.
Will follow.
Diabetes History
- -
Type of Diabetes: 2
Pre-Admission Diabetes Regimen
01/26/25 01/27/25
15:45 03:57
Creatinine 0.6 0.6
Lab Results
Hemoglobin A1c 7.6 % (4.0-5.6) H 01/19/25 12:10
Insulin Pump Settings
IP Diabetes Regimen
01/26/25 01/26/25 01/26/25
15:44 15:45 16:56
Glucose 170 H
POC Glucose 173 H 184 H
01/26/25 01/26/25 01/26/25
17:55 18:57 19:15
Glucose
POC Glucose 165 H 172 H 174 H
01/26/25 01/26/25 01/26/25
19:54 21:53 23:55
Glucose
POC Glucose 169 H 153 H 140 H
01/27/25 01/27/25 01/27/25
00:51 02:56 03:57
Glucose 154 H
POC Glucose 137 H 140 H 123 H
01/27/25 01/27/25 01/27/25
06:09 08:33 10:17
Glucose
POC Glucose 114 H 100 H 112 H
01/27/25 01/27/25
12:15 13:42
Glucose
POC Glucose 98 99
Meal type: Breakfast
Patient Education
[2025-01-27] MEDS: TYLENOL 975 MG PO ×2 (13:58→22:46)
[2025-01-27] MEDS: FERRLECIT 110 MG IV (15:02)
[2025-01-27 16:13] LABS: Glucose - Point of Care 183 mg/dl (70-99)
--- NOTE | 2025-01-27 16:15 | PTCARENOTE ---
Pt reassessed. Pt resting in bed. C/o sternal pain with coughing. Denies nausea. SR-ST on tele with rates 90s-110s. BP 102/57. POX 92% on 2L NC. Surgical sites stable. CT output WNL. UO remains 5-10/hr, CT CHIROPRACTIC PHYSICIAN notified. Dobutamine gtt continues to
infuse. Repeat labs obtained per orders. Insulin gtt continues to infuse.
[2025-01-27 16:40] LABS: Hematocrit 22.0 % (37.0-47.0); Hemoglobin 7.0 g/dL (12.0-16.0); Mean Corp Hgb Conc. 31.8 g/dL (33.0-37.0); Mean Corpuscular Volume 82.4 fL (81.0-99.0); Platelet Count 113 10^3/uL (130-400); Red Cell Dist. Width 15.6 % (11.5-14.5)
[2025-01-27 16:50] LABS: Blood Urea Nitrogen 19 mg/dl (7-17); Calcium 8.1 mg/dl (8.4-10.2); Carbon Dioxide 28 mmol/L (22-30); Chloride 103 mmol/L (98-107); Estimated Creatinine Clearance 66 ml/min; Glucose 166 mg/dl (70-99); Magnesium 2.2 mg/dl (1.6-2.3); Potassium 4.1 mmol/L (3.5-5.1); Sodium 135 mmol/L (135-145); eGFR > 60.00
[2025-01-27 17:04] LABS: Glucose - Point of Care 159 mg/dl (70-99)
[2025-01-27 19:10] LABS: Glucose - Point of Care 152 mg/dl (70-99)
[2025-01-27 20:44] LABS: Glucose - Point of Care 166 mg/dl (70-99)
--- NOTE | 2025-01-27 20:45 | PTCARENOTE ---
Report received from HEAVENLY Nolasco. Walking rounds done. Pt Awake, alert, oriented x 4. Family at bedside. Speech clear. Moves all extremities equally x 4. Pt on 2L/NC. Sats 92-93%. O2 increased to 3L/NC. Sats 93-96%. BBS present. Decreased to B
bases. Audible heart tones. Pt in SR, occasionally ST, low 100's. Dobutamine gtt infusing at 2.5 mcg/kg/min. 1 unit PRBC just completed by day shift RN. Albumin 25% IV given as scheduled. AV wires attached to temporary pacer box. See flowsheet.
Mediastinal CTs x 2 to -20 cm suction. Surgibra intact. BP normotensive. For pulse and wound assessments, see flowsheets. Belly soft, nontender. Hypoactive bs x 4. No report of nausea. Street draining clear, yellow urine. Glycemic protocol followed.
Pt given last dose of Toradol 15 mg IV for pain. Ongoing plan of care.
[2025-01-27] MEDS: LOPRESSOR PO (22:44)
[2025-01-27 23:03] LABS: Glucose - Point of Care 83 mg/dl (70-99)
--- NOTE | 2025-01-27 23:05 | PTCARENOTE ---
Scheduled meds given. Glycemic protocol followed. Crackers provided as a snack, per request. No other c/o pain. Dobutamine gtt remains at 2.5 mcg/kg/min. Pt in SR, ST at times. Sats on 3L/NC are 93-96%.
[2025-01-28] VITALS (34 sets, daily range): BP systolic 102–146; BP diastolic 56–73; PULSE 92–100; O2SAT 93–95; BMI 36.3
--- NOTE | 2025-01-28 00:24 | W.PN.CT ---
Today's Communication / Plan
-
No issues overnight�
If stable plan for slow�Dobutamine�wean�today�(currently @�2.5);�reduce�rate�by�0.5 every 4 hours�(Monitor mixed venous)�
Anemia = received one�unit of blood overnight�
Maintain�2A/2V wires�
Current meds (amiodarone,�ASA, gabapentin,�metoprolol,�Crestor)�
Encourage IS and OOB as tolerated per protocol�
Consider DC cary�
Wean nasal canula�for�02 sat > 90�
Transition from insulin drip to home�regiment�per DM INDEPENDENT BEAUTY CONSULTANT.�
Assessment / Plan
-
- Bicuspid aortic valve morphology, severe aortic valve stenosis, symptomatic- s/p Surgical aortic valve replacement [23 mm Maldonado Inspiris Resilia bioprosthesis] by Dr. Landry on 01/26/25, pod #2
- Severe aortic valve stenosis, symptomatic
- Bicuspid valve morphology, type I
- Hypertension
- Hyperlipidemia
- Diabetes (A1c 7.6)
- Arthritis
- Acute postop blood loss anemia
- Acute postop atelectasis
- Acute postop hypovolemia with subsequent hypervolemia
Subjective
-
Date of Service: January 28, 2025
Objective Data
-
PT 18.7 Sec (11.4-14.6) H 01/26/25 15:45
INR 1.54 01/26/25 15:45
APTT 35.6 Sec (23.4-35.0) H 01/26/25 15:45
Vital Signs
Vital Signs
Temp Pulse Resp BP Pulse Ox
97.9 F 95 16 117/62 93
01/27/25 23:00 01/27/25 23:00 01/27/25 23:00 01/27/25 23:00 01/27/25 23:00
CT Intake/Output/Weight
01/27/25 01/27/25 01/28/25
06:59 18:59 06:59
Intake Total 1649.9 / 2078.9 1002.9 / 1442.7 439.8 / 1442.7
Output Total 480 / 1135 345 / 615 270 / 615
Balance 1169.9 / 943.9 657.9 / 827.7 169.8 / 827.7
SaO2: 93
Physical Exam
-
General: Awake
Cardiovascular: Regular rate & rhythm
Respiratory: Clear and Equal
Sternum: Stable
Incision: Clean, Dry and Intact
Extremities: Edema +1
[2025-01-28 01:20] LABS: Glucose - Point of Care 123 mg/dl (70-99)
[2025-01-28 03:34] LABS: Glucose - Point of Care 99 mg/dl (70-99)
[2025-01-28] MEDS: FLEXBUMIN 100 IV (03:47)
--- NOTE | 2025-01-28 04:05 | PTCARENOTE ---
Labs drawn and sent. Dobutamine gtt remains at 2.5 mcg/kg/min. Pt SR-ST, 90-110's. . Sats 95-96% on 3L/NC. Pt sleeping yet arouses easily to voice. Focuses on speaker, answers questions appropriately. Equal extremity strength x 4.
[2025-01-28 04:32] LABS: Hematocrit 24.6 % (37.0-47.0); Hemoglobin 7.9 g/dL (12.0-16.0); Mean Corp Hgb Conc. 32.1 g/dL (33.0-37.0); Mean Corpuscular Volume 81.2 fL (81.0-99.0); Platelet Count 106 10^3/uL (130-400); Red Cell Dist. Width 15.4 % (11.5-14.5)
[2025-01-28 04:54] LABS: Blood Urea Nitrogen 22 mg/dl (7-17); Calcium 8.1 mg/dl (8.4-10.2); Carbon Dioxide 28 mmol/L (22-30); Chloride 105 mmol/L (98-107); Estimated Creatinine Clearance 59 ml/min; Glucose 103 mg/dl (70-99); Magnesium 2.4 mg/dl (1.6-2.3); Potassium 3.9 mmol/L (3.5-5.1); Sodium 138 mmol/L (135-145); eGFR > 60.00
[2025-01-28 05:33] LABS: Glucose - Point of Care 122 mg/dl (70-99)
[2025-01-28] MEDS: ROXICODONE 5 MG PO (05:47)
[2025-01-28] MEDS: TYLENOL 975 MG PO ×3 (05:48→21:38)
--- NOTE | 2025-01-28 06:30 | PTCARENOTE ---
Pt given CHG bath, face washed. Helped to sitting without c/o dizziness. Normotensive. Helped to standing scale with 2 RNs. Then helped to recliner chair. Oxycodone 5 mg given for m moderate c/o sternal pain. Report to HEAVENLY pompa this am. Ongoing
plan of care.
--- NOTE | 2025-01-28 08:06 | W.PN.INTV ---
Today's Communication / Plan
Recommendations
Goal BG 110�140
Continue dobutamine drip, weaning down as tolerated while trending MVO2 with goal >60�65, and maintain MAP >65-70
Pain control
Encourage incentive spirometer
Removal of mediastinal chest tubes per CT surgery team
Pre Press Manager service will continue to follow along while patient remains in CVICU. Once transferred to CVICU�telemetry status then we will sign off at that time.
Assessment
-
Assessment: 64-year-old female with a past medical history of hypertension, hyperlipidemia, DM type II and arthritis who presents for elective aortic valve replacement. Patient known to the cardiothoracic surgery service, with last visit on
01/11/[address] Landry. Echo on 12/08/2024 showed mild�moderately hypertrophic LV with an EF of 65-70%, with heavily calcified aortic valve with reduced leaflet excursion, and mean gradient across the AV of 39.9. Left and right heart
catheterization on 12/25/2024 showed a mean gradient across the aortic valve of 34.6, with trivial coronary artery disease and mildly elevated biventricular filling pressures with moderate predominantly postcapillary pulm hypertension and preserved
cardiac output. She was diagnosed with severe low-flow, low gradient aortic valve stenosis. Patient has been feeling shortness of breath with flight of steps and with light activity, with worsening SOB over the last year. Surgical intervention
recommended and the patient agreed to this procedure. On 01/26/2025, she underwent surgical aortic valve replacement with a 23 mm bioprosthesis. There were no immediate complications, and she was transferred to the CVICU postoperatively, with
Pre Press Manager services consulted for additional management/recommendations.
Chronic conditions [employer]: Hypertension, hyperlipidemia, DM type II, arthritis
Impression:
#Bicuspid aortic valve morphology with severe, symptomatic aortic valve stenosis s/p surgical aortic valve replacement with 23 mm bioprosthesis (POD #2)
#Acute anemia due to above
#DM type II complicated by hyperglycemia
#Hypertension
#Hyperlipidemia
#Multinodular thyroid goiter causing slight displacement/compression of the esophagus and trachea to the right (per CT TAVR on 01/08/2025)
Plan:
Patient extubated overnight on 01/27/2025, and currently breathing comfortably on room air saturating 94-95%
Goal SpO2 >90-94%
prn nebulized bronchodilators - not currently bronchospastic
Encourage incentive spirometer use q1hr while awake
Pulmonary artery catheter parameters will be followed
Pressors/antihypertensive/inotropes/diuretics will be provided as needed
Maintain MAP>65
Replete electrolytes with K>4, Mg>2
Monitor chest tube output (mediastinal chest tubes x 2 - to be removed today)
Monitor hemoglobin
Monitor platelet count and coags
Transfuse blood products as needed to maintain Hb>7g/dL, plt>50k (given post-operative status)
CT surgery managing chest tubes
Monitor blood sugar to maintain euglycemia with goal BG 110-140
Insulin drip now off; recommend ISS to maintain BG at goal as above
Aspiration precautions
DVT prophylaxis
Early nutrition
Early mobilization
Pre Press Manager service will continue to follow along while patient remains in CVICU. Once transferred to CVICU�telemetry status then we will sign off at that time.
Critical care statement: A total of 42 minutes of critical care time was provided for this patient today. This includes management of ventilator, spontaneous breathing trial, arterial blood gases, pressors, of unstable vital signs, evaluation of the
patient at bedside, reviewing the patient's pertinent medical records including radiographs, microbiology, laboratory evaluations, and discussion with primary team and critical care nursing.
Data:
CT TAVR 01/08/2025:
Multinodular thyroid goiter with mediastinal extension.
Hepatic steatosis.
Probable simple 1.4 cm right ovarian cyst. No dedicated follow-up is indicated per the 2019 Society of Radiologists in Ultrasound consensus statemen
Subjective Dataa
Subjective Data
Date of Service:
Date of Service: January 28, 2025
Chief Complaint: Pre Press Manager Follow Up
Subjective:
Patient seen this morning. On dobutamine at 1.5 mcg/kg/min. Afebrile overnight. Heart rate 103, BP 108/65. Currently on room air saturating 95%. Patient's , Farid, present at bedside and all questions answered. Patient denies chest
pain, LOZA, nausea, fevers or chills.
Review of Systems
General: Other (Negative unless mentioned above)
Objective Data
Data Reviewed
Vital Signs / I&O / Oxygen:
Vital Signs
Temp Pulse Resp BP Pulse Ox
98.9 F 104 18 132/64 94
01/28/25 12:17 01/28/25 13:34 01/28/25 12:17 01/28/25 13:34 01/28/25 13:15
Intake and Output
01/27/25 01/28/25 01/29/25
06:59 06:59 06:59
Intake Total 2042.9 / 2078.9 1651.9 / 1651.9 885.5 / 885.5
Output Total 1100 / 1135 995 / 995 905 / 905
Balance 942.9 / 943.9 656.9 / 656.9 -19.5 / -19.5
SaO2 [SIMV] 99
SaO2 94
Nasal Cannula flow liters per 2
minute
Physical Exam
General: Respiratory Distress (negative), Comfortable and Chills (negative)
HEENT: Normocephalic and Anicteric
Cardiovascular: S1-S2 and Peripheral Edema (negative)
Respiratory: Wheeze (negative), Crackles (negative), Rhonchi (negative), Non-Labored Respirations, Stridor (negative) and Chest Tube (Mediastinal chest tubes x 2)
GI: Soft, Distended (Abdominal obesity), Non Tender and Normal Bowel Sounds
Neurology: Awake, Alert and Tremors (negative)
Skin: Warm, Dry, Cyanosis (negative) and Jaundice (negative)
Labs/Micro/Reports
Lab Data
01/28/25 04:15
01/28/25 04:15
--- NOTE | 2025-01-28 09:11 | PN.DE.MGMTRT ---
Insulin Management
- -
01/28/2025 Diabetes Management Consult Follow up
Patient admitted 01/26 for aortic valve replacement. PMH HTN, HLD, diabetes, arthritis, severe aortic valve stenosis. Prior to admission was taking glimepiride 4 mg daily, Jardiance 25 mg daily, metformin 1000 BID and Ozempic once weekly. A!C on
admission 7.6%, cr .6, eGFR > 60.
POD 2 s/p Aortic valve replacement. Patient is awake alert and oriented sitting out of bed in chair, family at bedside very supportive. Patient glucose 99 to 166 receiving critical care glycemic protocol at 3.5 to 7 units of insulin per hour.
Will continue critical care glycemic protocol today until after lunch. Will resume metformin 1000 mg BID first dose now, farxiga 10 mg daily, first dose now (takes Jardiance 25 mg @ home) and glimepiride 4 mg daily first dose now and start
glimepiride 2 mg with dinner first dose today. Insulin infusion to be turned off at 3pm. Will start moderate corrective insulin with dinner.
Discussed with nurse.
Will follow.
Diabetes History
- -
Type of Diabetes: 2
Pre-Admission Diabetes Regimen
01/27/25 01/28/25
16:24 04:15
Creatinine 0.8 0.9
Lab Results
Hemoglobin A1c 7.6 % (4.0-5.6) H 01/19/25 12:10
Insulin Pump Settings
IP Diabetes Regimen
01/27/25 01/27/25 01/27/25
10:17 12:15 13:42
Glucose
POC Glucose 112 H 98 99
01/27/25 01/27/25 01/27/25
16:11 16:24 17:01
Glucose 166 H
POC Glucose 183 H 159 H
01/27/25 01/27/25 01/27/25
19:09 20:43 23:01
Glucose
POC Glucose 152 H 166 H 83
01/28/25 01/28/25 01/28/25
01:19 03:32 04:15
Glucose 103 H
POC Glucose 123 H 99
01/28/25
05:32
Glucose
POC Glucose 122 H
Patient Education
--- NOTE | 2025-01-28 09:12 | W.PN.CD ---
Today's Communication / Plan
-
stable and in NSR
monitor post op anemia closely. Hb increased from 7.0 to 7.9
additional post op care per ct surgery
Impression / Plan
-
64 y/o female (patient of Dr. Sanchez) with hypertension, diabetes, hyperlipidemia, obesity, and bicuspid aortic valve with severe aortic stenosis is now s/p bio AVR with Dr. Landry 01/26/25:
.
- [employer] Dr Cullen Neves
s/p surgical bio AVR, Dr. Landry 01/26/25 (surgery for Bicuspid aortic valve with severe aortic stenosis)
-hemodynamically stable and in NSR.
-on ASA
.
#post-op anemia. Hn 7.0 yesterday and now 7.9. Monitor closely
HTN:
-monitor post-op
-on HCTZ and CCB as OP
HLD:
-statin
DM2
-tx per protocol
Physical Exam
Vital Signs/Labs
Vital Signs
Temp Pulse Resp BP Pulse Ox
97.7 F 97 15 123/62 95
01/28/25 04:00 01/28/25 07:30 01/28/25 06:08 01/28/25 07:00 01/28/25 07:30
01/27/25 01/28/25 01/29/25
06:59 06:59 06:59
Actual Weight 82.5 kg 84.3 kg
01/28/25 04:15
01/28/25 04:15
PT 18.7 Sec (11.4-14.6) H 01/26/25 15:45
INR 1.54 01/26/25 15:45
APTT 35.6 Sec (23.4-35.0) H 01/26/25 15:45
Magnesium 2.4 mg/dl (1.6-2.3) H 01/28/25 04:15
Physical Exam
Constitutional: No acute distress
EENT: Anicteric
Cardiovascular: Rhythm & rate is regular
Respiratory: Wheeze Absent and Rhonchi Absent
GI: Soft and Non tender
Neuro/Psych: Alert
Data Reviewed
-
Date of Service: January 28, 2025
Medical Decision Making: Reviewed Test Results
EKG: Tracing Personally Visualized and interpreted and Report Reviewed by me
Medical Tests (PFT, Pathology etc): Report Reviewed by me
Labs: Labs Reviewed by me
[2025-01-28 09:18] LABS: Glucose - Point of Care 99 mg/dl (70-99)
[2025-01-28] MEDS: CRESTOR 20 MG PO (09:25)
[2025-01-28] MEDS: PROTONIX 40 MG PO (09:25)
[2025-01-28] MEDS: NEURONTIN 100 MG PO (09:26)
[2025-01-28] MEDS: PACERONE 200 MG PO ×3 (09:26→21:38)
[2025-01-28] MEDS: LOW STRENGTH ASPIRIN 81 MG PO (09:26)
[2025-01-28] MEDS: BACTROBAN 2% OINTMENT 1 APPLIC NASAL ×2 (09:27→21:37)
[2025-01-28] MEDS: GLUCOPHAGE 1000 MG PO ×2 (09:29→16:59)
[2025-01-28] MEDS: LASIX 40 MG IV (09:30)
[2025-01-28] MEDS: KCL 20 MEQ PO (09:30)
[2025-01-28] MEDS: AMARYL 4 MG PO (09:30)
[2025-01-28] MEDS: FARXIGA 10 MG PO (09:30)
[2025-01-28] MEDS: NOVOLOG FLEXPEN 4 UNITS SC ×2 (09:34→13:51)
[2025-01-28] MEDS: LIDOCAINE 4% PATCH TOPICAL (09:35)
[2025-01-28] MEDS: MAGNESIUM OXIDE PO (09:45)
[2025-01-28] MEDS: LOPRESSOR PO (09:45)
[2025-01-28 11:01] LABS: Glucose - Point of Care 171 mg/dl (70-99)
--- NOTE | 2025-01-28 11:25 | PTCARENOTE ---
Rec'd pt this shift awake and alert in chair. Pt NSR on monitor. Dobutamine infusing at 2.5 mcg/kg/min. Dobutamine decreased to 2 mcg/kg/min this am as ordered. Pt remains on Insulin drip and titrated according to glycemic protocol. Wires removed by
LAURA Chaidez. VS done and bedrest maintained as per protocol. See worklist for VS/I and O and assessments.
--- NOTE | 2025-01-28 11:46 | W.PN.UPDATE ---
Update Note
Progress Note Update
No pacing required. Atrial and ventricular wires removed without difficulty.
[2025-01-28 12:26] LABS: Glucose - Point of Care 128 mg/dl (70-99)
--- NOTE | 2025-01-28 12:48 | PTCARENOTE ---
mixed venous sent. Dobutamine weaned to 1.5mcg/kg/min as ordered. Chest tubes d/c'd as ordered. Pt resting at this time, no c/o pain.
[2025-01-28] MEDS: FERRLECIT 110 MG IV (13:33)
[2025-01-28] MEDS: NSS 500 IV (13:33)
[2025-01-28] MEDS: SENOKOT 8.6 MG PO ×2 (13:33→21:38)
[2025-01-28 13:51] LABS: Glucose - Point of Care 119 mg/dl (70-99)
--- NOTE | 2025-01-28 14:12 | CM ---
Chart reviewed. Patient is independent of ADLS, lives with her 2 daughters, aunt, in a 2 [facility], total of 3 TRA, 0 DME. Plan is for the patient to return home with CT Transitional RN. CM to follow
[2025-01-28 16:50] LABS: Glucose - Point of Care 132 mg/dl (70-99)
[2025-01-28 16:50] LABS: Glucose - Point of Care 134 mg/dl (70-99)
[2025-01-28] MEDS: NOVOLOG FLEXPEN SC (16:55)
[2025-01-28] MEDS: NOVOLOG FLEXPEN-MODERATE RESISTANCE SC (16:55)
[2025-01-28] MEDS: AMARYL 2 MG PO (17:00)
[2025-01-28] MEDS: NEURONTIN PO (17:06)
[2025-01-28 17:15] LABS: Hematocrit 23.5 % (37.0-47.0); Hemoglobin 7.6 g/dL (12.0-16.0); Mean Corp Hgb Conc. 32.3 g/dL (33.0-37.0); Mean Corpuscular Volume 81.6 fL (81.0-99.0); Platelet Count 107 10^3/uL (130-400); Red Cell Dist. Width 15.9 % (11.5-14.5)
--- NOTE | 2025-01-28 17:57 | PTCARENOTE ---
Insulin drip d/c'd at 1500 as ordered. Dobutamine decreased to 1 mcg/kg/min.
--- NOTE | 2025-01-28 21:15 | PTCARENOTE ---
Report received from HEAVENLY Nur. Walking rounds done. Pt sitting in chair. VS done. Pt assessed. Awake, alert, oriented x 4. Speech clear. Moves all extremities x 4. Pt on 2L/NC in chair. Sats 97-98%. BBS present. Decreased B bases. Posterior bases
with fine rales. Helped back to bed with 2 assist. Sats in bed 93% on 2L. CDB and IS encouraged. O2 increased to 3L/NC. Sats now 94-97%. Pt in SR with 1st degree AVB, occasional monomorphic PVC. Palpable +2 pulses to B radials and B DPs.
Normotensive. Surgibra intact. For wound assessments, see flowsheet. Of note, dressing change done to old CT site due to moderate amount SSG drainage. Cleansed with CHG, Vaseline gauze, sterile gauze and ABD pad applied. Pt with small serous-filled
blisters x 5 to L side of abdomen, no c/o pain. Possible due to prior tape. Blisters open to air. Paper tape used on pt. Belly soft, nontender, obese, round. Normoactive bs x 4. Poor appetite. No BM yet. Street intact, draining clear, yellow urine.
Dobutamine gtt at 1 mcg/kg/min. MVO2 drawn and sent. Result shared with LAURA Simmons. MVO2 63.6. Per SERVICE DISMANTLER order, will leave Dobutamine gtt at 1 mcg/kg/min and recheck MVO2 in 4 hours.
CHG bath done. gown, leads, linens changed. Son at bedside and left for evening. HS glucose done. Ongoing plan of care.
[2025-01-28 22:00] LABS: Glucose - Point of Care 148 mg/dl (70-99)
[2025-01-29] VITALS (31 sets, daily range): BP systolic 73–149; BP diastolic 50–86; PULSE 78; O2SAT 91–96; BMI 36.1
--- NOTE | 2025-01-29 01:13 | W.PN.CT ---
Today's Communication / Plan
-
No issues overnight�
Continued slow dobutamine wean yesterday, now off this AM. last ScvO2 69.7% on 0.5 mcg dobutamine, will follow repeat at 1000 now that she's off the gtt
AV wires pulled
2m CTs DCd
Current meds (amiodarone,�ASA, gabapentin,�metoprolol held,�Crestor)�
Encourage IS and OOB as tolerated per protocol�
Transition from insulin drip to home�regiment�per DM ONLINE MEDIA DIRECTOR.�
Assessment / Plan
-
- Bicuspid aortic valve morphology, severe aortic valve stenosis, symptomatic- s/p Surgical aortic valve replacement [23 mm Maldonado Inspiris Resilia bioprosthesis] by Dr. Landry on 01/26/25, pod #3
- Severe aortic valve stenosis, symptomatic
- Bicuspid valve morphology, type I
- Hypertension
- Hyperlipidemia
- Diabetes (A1c 7.6)
- Arthritis
- Acute postop blood loss anemia
- Acute postop atelectasis
- Acute postop hypovolemia with subsequent hypervolemia
Subjective
-
Date of Service: January 29, 2025
Objective Data
-
PT 18.7 Sec (11.4-14.6) H 01/26/25 15:45
INR 1.54 01/26/25 15:45
APTT 35.6 Sec (23.4-35.0) H 01/26/25 15:45
Vital Signs
Vital Signs
Temp Pulse Resp BP Pulse Ox
98.6 F 93 15 127/63 96
01/29/25 00:00 01/29/25 00:00 01/29/25 00:00 01/29/25 00:00 01/29/25 00:00
CT Intake/Output/Weight
01/28/25 01/28/25 01/29/25
06:59 18:59 06:59
Intake Total 649.0 / 1651.9 1263.1 / 1330.3 67.2 / 1330.3
Output Total 650 / 995 1005 / 1585 580 / 1585
Balance -1.0 / 656.9 258.1 / -254.7 -512.8 / -254.7
SaO2: 96
Physical Exam
-
General: Awake and Oriented
Cardiovascular: Regular rate & rhythm, No Murmurs and No Rub
Respiratory: Clear, Equal and Decreased Breath Sounds
Sternum: Stable
Incision: Clean and Dry
Extremities: Edema +1
Data Reviewed
-
Lab Results: Results Reviewed
Medications: Active Meds Reviewed
Chest X-Ray: Report Reviewed
ECG: Report Reviewed
--- NOTE | 2025-01-29 01:15 | PTCARENOTE ---
Repeat MVO2 drawn on Dobutamine gtt 1 mcg/kg/min. MVO2 results 70.1. Reported to LAURA Simmons. Order given to decrease Dobutamine gtt to 0.5 mcg/kg/min or 0.6 mls. Done at 0115. Will recheck MVO2 at ~4886-2246.
--- NOTE | 2025-01-29 04:15 | PTCARENOTE ---
Labs drawn and sent. Pt remains in SR with 1st degree AVB. Normotensive. Sats 96-98% on 3L/NC.
[2025-01-29 05:22] LABS: Hematocrit 25.9 % (37.0-47.0); Hemoglobin 8.1 g/dL (12.0-16.0); Mean Corp Hgb Conc. 31.3 g/dL (33.0-37.0); Mean Corpuscular Volume 84.6 fL (81.0-99.0); Platelet Count 121 10^3/uL (130-400); Red Cell Dist. Width 16.2 % (11.5-14.5)
--- NOTE | 2025-01-29 05:46 | PTCARENOTE ---
Dobutamine gtt off per provider order at 0545.
[2025-01-29 05:49] LABS: Blood Urea Nitrogen 16 mg/dl (7-17); Calcium 8.4 mg/dl (8.4-10.2); Carbon Dioxide 25 mmol/L (22-30); Chloride 106 mmol/L (98-107); Estimated Creatinine Clearance 89 ml/min; Glucose 124 mg/dl (70-99); Magnesium 2.4 mg/dl (1.6-2.3); Potassium 4.5 mmol/L (3.5-5.1); Sodium 138 mmol/L (135-145); eGFR > 60.00
[2025-01-29] MEDS: TYLENOL 975 MG PO ×3 (06:33→22:42)
--- NOTE | 2025-01-29 07:00 | PTCARENOTE ---
Pt helped to sitting then standing to be weighed. Pt then helped to recliner chair. No c/o dizziness/lightheadedness. Normotensive in chair. 116/65. Sats 98% on 3L/NC. Scheduled Tylenol given.
--- NOTE | 2025-01-29 07:21 | PN.DE.MGMTRT ---
Insulin Management
- -
01/29/2025: Diabetes Management Follow up
Patient admitted 01/26 for aortic valve replacement. PMH HTN, HLD, diabetes, arthritis, severe aortic valve stenosis. Prior to admission was taking glimepiride 4 mg daily, Jardiance 25 mg daily, metformin 1000 BID and Ozempic once weekly. A!C on
admission 7.6%, Cr 0.6, eGFR > 60.
Patient is awake alert and oriented sitting up in bed, offers no complaints, able to discuss diabetes care plan. Dtr at bedside very supportive.
POD # 3 s/p Aortic valve replacement. Transitioned off critical care glycemic protocol yesterday to her home oral regimen.
Glucose stable and in range, 132 to 134, fasting 124 V, 162 POC.
Will make no changes to current regimen: Metformin 1000 mg BID, Farxiga 10 mg daily (takes Jardiance 25 mg @ home) and glimepiride 4 mg at breakfast and 2 mg at dinner with moderate corrective insulin with meals. Pt states that her insurance may not
cover Jardiance, will ask CM to verify co-pay for Jardiance
Discussed with nurse. Will cont to follow.
Diabetes History
- -
Type of Diabetes: 2
Pre-Admission Diabetes Regimen
01/29/25
04:46
Creatinine 0.6
Lab Results
Hemoglobin A1c 7.6 % (4.0-5.6) H 01/19/25 12:10
Insulin Pump Settings
IP Diabetes Regimen
01/28/25 01/28/25 01/28/25
09:17 11:00 12:25
Glucose
POC Glucose 99 171 H 128 H
01/28/25 01/28/25 01/28/25
13:49 14:29 16:45
Glucose
POC Glucose 119 H 132 H 134 H
01/28/25 01/29/25
21:59 04:46
Glucose 124 H
POC Glucose 148 H
Meal type: Breakfast
Amount consumed: 100%
Patient Education
[2025-01-29] MEDS: MUCINEX 600 MG PO ×2 (07:57→20:54)
[2025-01-29] MEDS: AMARYL 4 MG PO (07:57)
[2025-01-29] MEDS: PROTONIX 40 MG PO (07:57)
[2025-01-29] MEDS: SENOKOT 8.6 MG PO ×2 (07:57→20:54)
[2025-01-29] MEDS: PACERONE 200 MG PO ×3 (07:57→22:42)
[2025-01-29] MEDS: FARXIGA 10 MG PO (07:57)
[2025-01-29] MEDS: GLUCOPHAGE 1000 MG PO ×2 (07:57→16:39)
[2025-01-29] MEDS: CRESTOR 20 MG PO (07:57)
[2025-01-29] MEDS: LOPRESSOR 12.5 MG PO ×2 (07:58→20:53)
[2025-01-29] MEDS: LIDOCAINE 4% PATCH 1 PATCH TOPICAL (07:58)
[2025-01-29] MEDS: LOW STRENGTH ASPIRIN 81 MG PO (07:58)
[2025-01-29] MEDS: LASIX 20 MG IV (07:58)
[2025-01-29] MEDS: BACTROBAN 2% OINTMENT 1 APPLIC NASAL ×2 (07:59→20:53)
--- NOTE | 2025-01-29 08:17 | W.PN.INTV ---
Today's Communication / Plan
Recommendations
Goal BG 110�140
Now off dobutamine drip, however MVO2 has dropped to 46 and she was symptomatic while walking today with cardiac rehab � follow-up posttransfusion CBC s/p 1 unit PRBC
Continue to trend MVO2 with goal >60�65
Pain control
Encourage incentive spirometer
Part Time Receptionist service will continue to follow along while patient remains in CVICU. Once transferred to CVICU�telemetry status then we will sign off at that time.
Assessment
-
Assessment: 64-year-old female with a past medical history of hypertension, hyperlipidemia, DM type II and arthritis who presents for elective aortic valve replacement. Patient known to the cardiothoracic surgery service, with last visit on
01/11/[address] Landry. Echo on 12/08/2024 showed mild�moderately hypertrophic LV with an EF of 65-70%, with heavily calcified aortic valve with reduced leaflet excursion, and mean gradient across the AV of 39.9. Left and right heart
catheterization on 12/25/2024 showed a mean gradient across the aortic valve of 34.6, with trivial coronary artery disease and mildly elevated biventricular filling pressures with moderate predominantly postcapillary pulm hypertension and preserved
cardiac output. She was diagnosed with severe low-flow, low gradient aortic valve stenosis. Patient has been feeling shortness of breath with flight of steps and with light activity, with worsening SOB over the last year. Surgical intervention
recommended and the patient agreed to this procedure. On 01/26/2025, she underwent surgical aortic valve replacement with a 23 mm bioprosthesis. There were no immediate complications, and she was transferred to the CVICU postoperatively, with
Part Time Receptionist services consulted for additional management/recommendations.
Chronic conditions RIPSAWYER: Hypertension, hyperlipidemia, DM type II, arthritis
Impression:
#Bicuspid aortic valve morphology with severe, symptomatic aortic valve stenosis s/p surgical aortic valve replacement with 23 mm bioprosthesis (POD #3)
#Acute anemia due to above
#DM type II complicated by hyperglycemia
#Hypertension
#Hyperlipidemia
#Multinodular thyroid goiter causing slight displacement/compression of the esophagus and trachea to the right (per CT TAVR on 01/08/2025)
Plan:
Patient extubated overnight on 01/27/2025, and currently breathing comfortably on 2L/min air saturating 97%
Goal SpO2 >90-94%
prn nebulized bronchodilators - not currently bronchospastic
Encourage incentive spirometer use q1hr while awake
Pulmonary artery catheter parameters will be followed
Dobutamine drip off since 5:45 AM today (01/29)
Pressors/antihypertensive/inotropes/diuretics will be provided as needed
Maintain MAP>65
Replete electrolytes with K>4, Mg>2
Monitor chest tube output (mediastinal chest tubes x 2 removed on 01/28/2025)
Monitor hemoglobin
Monitor platelet count and coags
Transfuse blood products as needed to maintain Hb>7g/dL, plt>50k (given post-operative status)
Patient was hypotensive to the 70s/50s, sweaty and dizzy while walking with cardiac rehab today (01/29) with low MVO2 to 46. 1 unit PRBC ordered. Continue to trend MVO2 + post-transfusion Hb
CT surgery managing chest tubes
Monitor blood sugar to maintain euglycemia with goal BG 110-140
Insulin drip now off; recommend ISS to maintain BG at goal as above
Aspiration precautions
DVT prophylaxis
Early nutrition
Early mobilization
Part Time Receptionist service will continue to follow along while patient remains in CVICU. Once transferred to CVICU�telemetry status then we will sign off at that time.
Data:
CT TAVR 01/08/2025:
Multinodular thyroid goiter with mediastinal extension.
Hepatic steatosis.
Probable simple 1.4 cm right ovarian cyst. No dedicated follow-up is indicated per the 2019 Society of Radiologists in Ultrasound consensus statemen
Total time spent today was 79 minutes for this encounter. Time includes reviewing laboratory test/imaging results, reviewing pertinent medical records, obtaining and reviewing medical history, performing an appropriate exam, ordering medications,
tests and procedures. Time also includes documentation of this encounter, coordinating patient care and communicating with other healthcare professionals. Total time does not include separately billed tests performed on this date of service.
Subjective Dataa
Subjective Data
Date of Service:
Date of Service: January 29, 2025
Chief Complaint: Part Time Receptionist Follow Up
Subjective:
Seen this AM. Getting 1 U PRBC transfusion. Hb this morning 8.1. No active bleeding appreciated. Currently resting in bed no acute distress, saturating 97% on 2 L/min nasal cannula. Heart rate 80 and BP 119/80. Dobutamine drip was weaned off
overnight.
Review of Systems
General: Other (Negative unless mentioned above)
Objective Data
Data Reviewed
Vital Signs / I&O / Oxygen:
Vital Signs
Temp Pulse Resp BP Pulse Ox
98 F 79 16 111/55 95
01/29/25 08:00 01/29/25 09:30 01/29/25 08:00 01/29/25 09:00 01/29/25 09:21
Intake and Output
01/28/25 01/29/25 01/30/25
06:59 06:59 06:59
Intake Total 1651.9 / 1651.9 1393.3 / 1403.3
Output Total 995 / 995 1969 / 2044 525 / 525
Balance 656.9 / 656.9 -576.7 / -641.7 -495 / -495
SaO2 [SIMV] 99
SaO2 95
Nasal Cannula flow liters per 1
minute
Physical Exam
General: Respiratory Distress (negative), Comfortable and Chills (negative)
HEENT: Normocephalic and Anicteric
Cardiovascular: S1-S2 and Peripheral Edema (negative)
Respiratory: Wheeze (negative), Crackles (negative), Rhonchi (negative), Non-Labored Respirations and Stridor (negative)
GI: Soft, Distended (Abdominal obesity), Non Tender and Normal Bowel Sounds
Neurology: Awake, Alert and Tremors (negative)
Skin: Warm, Dry, Cyanosis (negative) and Jaundice (negative)
Labs/Micro/Reports
Lab Data
01/29/25 04:46
01/29/25 04:46
--- NOTE | 2025-01-29 08:20 | PTCARENOTE ---
Assumed care of pt from dayshift RN. Pt resting in chair. AAOx3. SR w/ 1st degree AVB on the tele monitor. HR 80-low 90s. BP stable. Palpable pulses throughout. +1 generalized anasarca. Pt received on 3 L NC and 98% - put to 1 L NC, current POX 95%.
Lung sounds diminished in B/L bases. Occasional cough. Deep breathing and IS encouraged. Abdomen round. +BSx4. Pt reports poor appetite. Street catheter intact and draining yellow urine. All surgical sites stable. Skin irritation on left abdomen,
blister like spots. Surgical bra in place. Right IJ cordis and PIV x1 intact. Dobutamine off since ~0545 per previous RN. Pt updated w/ plan for the day. See worklist for full nursing assessment and interventions. Call mckinley within reach.
[2025-01-29 08:30] LABS: Glucose - Point of Care 162 mg/dl (70-99)
[2025-01-29] MEDS: NOVOLOG FLEXPEN-MODERATE RESISTANCE 1 UNITS SC ×2 (08:32→11:45)
[2025-01-29] MEDS: NOVOLOG FLEXPEN SC (08:48)
--- NOTE | 2025-01-29 09:16 | W.PN.CD ---
Today's Communication / Plan
-
Continue routine postoperative care per CT surgery
We will see on Saturday. Please call for any acute issues over the weekend.
Impression / Plan
-
64 y/o female (patient of Dr. Sanchez) with hypertension, diabetes, hyperlipidemia, obesity, and bicuspid aortic valve with severe aortic stenosis is now s/p bio AVR with Dr. Landry 01/26/25
Language Instructor: Dr Cullen Neves
s/p surgical bio AVR, Dr. Landry 01/26/25 (surgery for Bicuspid aortic valve with severe aortic stenosis)
-hemodynamically stable and in NSR.
-on ASA and prophylactic amiodarone
post-op anemia
-Improving. Continue to monitor.
HTN:
-monitor post-op. Started on beta-nimesh.
-on HCTZ and CCB as OP
HLD - statin
DM2 - tx per protocol
Subjective: Postoperative pain improving. Otherwise no complaints. Received Lasix this morning.
Telemetry: Sinus rhythm. 3 beat run NSVT. Occasional SVT.
Physical Exam
Vital Signs/Labs
Vital Signs
Temp Pulse Resp BP Pulse Ox
98 F 85 16 111/55 95
01/29/25 08:00 01/29/25 09:00 01/29/25 08:00 01/29/25 09:00 01/29/25 08:15
01/28/25 01/29/25 01/30/25
06:59 06:59 06:59
Actual Weight 185 lb 13.595 oz 184 lb 15.485 oz
01/29/25 04:46
01/29/25 04:46
PT 18.7 Sec (11.4-14.6) H 01/26/25 15:45
INR 1.54 01/26/25 15:45
APTT 35.6 Sec (23.4-35.0) H 01/26/25 15:45
Magnesium 2.4 mg/dl (1.6-2.3) H 01/29/25 04:46
Physical Exam
Constitutional: No acute distress and Comfortable
Cardiovascular: Rhythm & rate is regular, Pedal edema is absent, S1S2 is normal and Murmur/rub/gallop absent
Respiratory: Respiratory effort normal and Crackles Present (bibasilar)
Neuro/Psych: AO x 3
Data Reviewed
-
Date of Service: January 29, 2025
Medical Decision Making: Reviewed Test Results, Test Interpretation and Review of Case with other Provider
EKG: Tracing Personally Visualized and interpreted
Echo: Report Reviewed by me
Labs: Labs Reviewed by me
--- NOTE | 2025-01-29 11:11 | PTCARENOTE ---
Pt sweaty, dizzy, and hypotensive (70s/50s) after short walk w/ cardiac rehab. MVO2 dropped (45.9). CT MARJAN aware. 1 unit of blood ordered. New type and screen sent.
[2025-01-29 11:45] LABS: Glucose - Point of Care 158 mg/dl (70-99)
--- NOTE | 2025-01-29 12:00 | PTCARENOTE ---
report received from previous RN. pt resting comforably OOB in chair. AAOx3, denies pain. SR on telemetry with 1st degree av block. + pulses. +1 generalized edema. pt on 2L nasal cannula, sat 98%. lung sounds diminished in bases. moist occasional
cough. pt reports poor appetite. voided in bathroom. Right IJ cordis infusing KVO. Surgical sites CDI. see worklist for full nursing assessment and interventions. 1 unit of PRBCs to be given per orders
--- NOTE | 2025-01-29 13:49 | CM ---
Addendum entered by Kathy Schmitt RN 01/29/25 15:01:
Patient stopped taking this medication because she couldn't afford it. Patient unable to pay for either.
Original Note:
Pricing on Farxiga through the patient's prescription plan is $133.58 and Jardiance is $140.30.
[2025-01-29] MEDS: FERRLECIT 110 MG IV (14:47)
--- NOTE | 2025-01-29 15:02 | CM ---
Chart reviewed. Patient is independent of ADLS, lives with her , 2 daughters and sister in a 2 [facility], total of 3 TRA, 0 DME. Plan is for the patient to return home with CT Transitional RN. CM to follow
--- NOTE | 2025-01-29 16:00 | PTCARENOTE ---
pt recieved 1 unit prbcs, tolerated well. pt assisted OOB to chair for dinner with 1 assist. ambulated to bathroom, voided and had soft loose bowel movement. vital signs stable. no changes in assessment noted.
[2025-01-29 16:39] LABS: Glucose - Point of Care 113 mg/dl (70-99)
[2025-01-29] MEDS: NOVOLOG FLEXPEN-MODERATE RESISTANCE SC (16:39)
[2025-01-29] MEDS: AMARYL 2 MG PO (16:41)
[2025-01-29] MEDS: NSS IV (16:41)
[2025-01-29] MEDS: ZOFRAN 4 MG IV (18:14)
--- NOTE | 2025-01-29 21:00 | PTCARENOTE ---
Patient received resting in bed. Patient A+A+Ox3. No neurological deficits noted. No c/o headache, dizziness or lightheadedness. O2 at 2L via NC. SpO2 99%. No c/o SOB. Occasional, nonproductive cough. Chest tube dressing intact. Sinus
Rhythm with First Degree AV Block. Heart rate 80's. No c/o chest pain, pressure or discomfort. Abdomen soft, nontender. No BM. No c/o nausea. No vomiting. Voiding. Generalized edema. Positive, palpable pulses. Sternal incision intact.
Patient with no c/o back or flank pain. Afebrile. Right I.J. Cordis. Assessment as documented.
[2025-01-29 23:14] LABS: Glucose - Point of Care 86 mg/dl (70-99)
[2025-01-30] VITALS (19 sets, daily range): BP systolic 85–167; BP diastolic 56–89; PULSE 73; O2SAT 97; BMI 36.0
--- NOTE | 2025-01-30 | PTCARENOTE ---
Patient sleeping without difficulty. No further changes from previous assessment.
[2025-01-30 03:58] LABS: Blood Urea Nitrogen 16 mg/dl (7-17); Calcium 8.3 mg/dl (8.4-10.2); Carbon Dioxide 26 mmol/L (22-30); Chloride 105 mmol/L (98-107); Estimated Creatinine Clearance 89 ml/min; Glucose 69 mg/dl (70-99); Magnesium 2.2 mg/dl (1.6-2.3); Potassium 4.2 mmol/L (3.5-5.1); Sodium 139 mmol/L (135-145); eGFR > 60.00
[2025-01-30 04:05] LABS: Hematocrit 30.3 % (37.0-47.0); Hemoglobin 9.6 g/dL (12.0-16.0); Mean Corp Hgb Conc. 31.7 g/dL (33.0-37.0); Mean Corpuscular Volume 85.4 fL (81.0-99.0); Platelet Count 157 10^3/uL (130-400); Red Cell Dist. Width 15.7 % (11.5-14.5)
[2025-01-30] MEDS: CALCIUM GLUCONATE 100 IV (04:40)
[2025-01-30] MEDS: TYLENOL 975 MG PO ×3 (04:54→22:30)
[2025-01-30 05:08] LABS: Glucose - Point of Care 85 mg/dl (70-99)
--- NOTE | 2025-01-30 06:00 | PTCARENOTE ---
Patient A+A+Ox3. No neurological deficits noted. No c/o headache, dizziness or lightheadedness. No c/o nausea. Resting in bed. AM labs collected and sent. Ionized Calcium 1.15 - Calcium Gluconate 2,000mg/100ml IV administered per PA order.
Blood sugar 69. 4 0z Glenn Juice given. 15 minutes later Accucheck result 85. Patient with no c/o hypoglycemia symptoms. No c/o pain or discomfort. Patient assisted to bedside commode with assist x1 - Voided 700 ml aleks urine. Patient given
CHG bath and linens changed. Chest tube dressing changed. Standing scale weight 83.7 kg. OOB to chair. Assessment/Interventions as documented.
--- NOTE | 2025-01-30 06:09 | W.PN.CT ---
Today's Communication / Plan
-
Plan:
-No issues overnight. Hemodynamically and neurologically intact �
-Off Dobutamine gtt yesterday morning
-Received 1u PRBC yesterday for h/h 8.1/25.9, 9.6/30.3 today
-Wt up 7 lbs from preop. Cont. diuresis
-Will replete ca++
-Encourage use of IS
-Wean off of O2
-f/U/2-view cxr
-D/C cordis
-PW d/c'd on POD#2
-OOB into chair/Ambulate
-Home later today vs tomorrow
Assessment / Plan
-
- Bicuspid aortic valve morphology, severe aortic valve stenosis, symptomatic- s/p Surgical aortic valve replacement [23 mm Maldonado Inspiris Resilia bioprosthesis] by Dr. Landry on 01/26/25, pod #3
- Severe aortic valve stenosis, symptomatic
- Bicuspid valve morphology, type I
- Hypertension
- Hyperlipidemia
- Diabetes (A1c 7.6)
- Arthritis
- Acute postop blood loss anemia (transfused 1u PRBC)
- Acute postop thrombocytopenia (stable without active bleed)
- Acute postop atelectasis
- Acute postop hypovolemia with subsequent hypervolemia
Discussed patient care with: Cardiology, Nursing, Respiratory Therapy and Pharmacy
Subjective
-
Date of Service: January 30, 2025
C/O mild incisional pain, otherwise feels well. Ambulating halls without difficulty
Objective Data
-
Lab Results
01/30/25 03:18
01/30/25 03:18
PT 18.7 Sec (11.4-14.6) H 01/26/25 15:45
INR 1.54 01/26/25 15:45
APTT 35.6 Sec (23.4-35.0) H 01/26/25 15:45
Vital Signs
Vital Signs
Temp Pulse Resp BP Pulse Ox
98.0 F 82 16 146/77 97
01/30/25 03:10 01/30/25 06:00 01/30/25 03:10 01/30/25 03:10 01/30/25 03:10
CT Intake/Output/Weight
01/29/25 01/29/25 01/30/25
06:59 18:59 06:59
Intake Total 130.2 / 1403.3 280 / 980 700 / 980
Output Total 965 / 2045 625 / 1325 700 / 1325
Balance -834.8 / -641.7 -345 / -345 0 / -345
SaO2: 97 (2L)
Physical Exam
-
General: Awake, Oriented and AOx3
Cardiovascular: Regular rate & rhythm, No Murmurs, No Rub and No Gallop
Respiratory: Decreased Breath Sounds (at bases, otherwise clear)
Sternum: Stable
Incision: Clean, Dry, Intact and Dressing Intact
Extremities: Other (+trace edema)
Data Reviewed
-
Lab Results: Results Reviewed
Medications: Active Meds Reviewed
Chest X-Ray: Report Reviewed and Image Reviewed
ECG: Report Reviewed and Image Reviewed
--- NOTE | 2025-01-30 08:22 | W.PN.INTV ---
Today's Communication / Plan
Recommendations
Goal BG 110�140
Pain control
Encourage incentive spirometer
Patient is now being downgraded to CVICU�telemetry status. No additional recommendations at this time. Senior Lead Developer/Pulmonary service will now sign off. Please reconsult if there are any additional questions/concerns, or if patient's respiratory
status deteriorates.
Assessment
-
Assessment: 64-year-old female with a past medical history of hypertension, hyperlipidemia, DM type II and arthritis who presents for elective aortic valve replacement. Patient known to the cardiothoracic surgery service, with last visit on
01/11/[address] Landry. Echo on 12/08/2024 showed mild�moderately hypertrophic LV with an EF of 65-70%, with heavily calcified aortic valve with reduced leaflet excursion, and mean gradient across the AV of 39.9. Left and right heart
catheterization on 12/25/2024 showed a mean gradient across the aortic valve of 34.6, with trivial coronary artery disease and mildly elevated biventricular filling pressures with moderate predominantly postcapillary pulm hypertension and preserved
cardiac output. She was diagnosed with severe low-flow, low gradient aortic valve stenosis. Patient has been feeling shortness of breath with flight of steps and with light activity, with worsening SOB over the last year. Surgical intervention
recommended and the patient agreed to this procedure. On 01/26/2025, she underwent surgical aortic valve replacement with a 23 mm bioprosthesis. There were no immediate complications, and she was transferred to the CVICU postoperatively, with
Senior Lead Developer services consulted for additional management/recommendations.
Chronic conditions APPAREL FASHION DESIGNER: Hypertension, hyperlipidemia, DM type II, arthritis
Impression:
#Bicuspid aortic valve morphology with severe, symptomatic aortic valve stenosis s/p surgical aortic valve replacement with 23 mm bioprosthesis (POD #44)
#Acute anemia due to above
#DM type II complicated by hyperglycemia
#Hypertension
#Hyperlipidemia
#Multinodular thyroid goiter causing slight displacement/compression of the esophagus and trachea to the right (per CT TAVR on 01/08/2025)
Plan:
Patient extubated overnight on 01/27/2025, and currently breathing comfortably on room air saturating 92-93%
Goal SpO2 >90-94%
prn nebulized bronchodilators - not currently bronchospastic
Encourage incentive spirometer use q1hr while awake
Pulmonary artery catheter parameters will be followed
Dobutamine drip off since 5:45 AM on 01/29
Pressors/antihypertensive/inotropes/diuretics will be provided as needed
Maintain MAP>65
Replete electrolytes with K>4, Mg>2
Mediastinal chest tubes x 2 removed on 01/28/2025)
Monitor hemoglobin
Monitor platelet count and coags
Transfuse blood products as needed to maintain Hb>7-8g/dL, plt>50k (given post-operative status)
Yesterday, patient was hypotensive to the 70s/50s, sweaty and dizzy while walking with cardiac rehab with low MVO2 to 46. 1 unit PRBC transfused with Hb rising from 8.1 yesterday to 9.6 today. Continue to trend H&H as stated above
Monitor blood sugar to maintain euglycemia with goal BG 110-140
Insulin drip now off; recommend ISS to maintain BG at goal as above
Aspiration precautions
DVT prophylaxis
Early nutrition
Early mobilization
Patient is now being downgraded to CVICU�telemetry status. No additional recommendations at this time. Senior Lead Developer/Pulmonary service will now sign off. Thank you for allowing us to be involved in the care of this patient. Please reconsult if
there are any additional questions/concerns, or if patient's respiratory status deteriorates.
Data:
CT TAVR 01/08/2025:
Multinodular thyroid goiter with mediastinal extension.
Hepatic steatosis.
Probable simple 1.4 cm right ovarian cyst. No dedicated follow-up is indicated per the 2019 Society of Radiologists in Ultrasound consensus statemen
Total time spent today was 37 minutes for this encounter. Time includes reviewing laboratory test/imaging results, reviewing pertinent medical records, obtaining and reviewing medical history, performing an appropriate exam, ordering medications,
tests and procedures. Time also includes documentation of this encounter, coordinating patient care and communicating with other healthcare professionals. Total time does not include separately billed tests performed on this date of service.
Subjective Dataa
Subjective Data
Date of Service:
Date of Service: January 30, 2025
Chief Complaint: Senior Lead Developer Follow Up
Subjective:
Patient seen and evaluated today at bedside. She feels tired. Sitting in chair no acute distress. On room air breathing comfortably, saturating 93%. Heart rate 81 and BP 139/75.
Review of Systems
General: Other (Negative unless mentioned above)
Objective Data
Data Reviewed
Vital Signs / I&O / Oxygen:
Vital Signs
Temp Pulse Resp BP Pulse Ox
97.8 F 72 16 132/77 95
01/30/25 08:49 01/30/25 10:14 01/30/25 08:49 01/30/25 10:14 01/30/25 08:49
Intake and Output
01/29/25 01/30/25 01/31/25
06:59 06:59 06:59
Intake Total 1393.3 / 1403.3 980 / 980 20 / 20
Output Total 1969 / 2044 1325 / 1325 100 / 100
Balance -576.7 / -641.7 -345 / -345 -80 / -80
SaO2 [SIMV] 99
SaO2 95
Nasal Cannula flow liters per 2
minute
Physical Exam
General: Respiratory Distress (negative), Comfortable and Chills (negative)
HEENT: Normocephalic, Anicteric and Other (R-IJ cordis in place)
Cardiovascular: S1-S2 and Peripheral Edema (negative)
Respiratory: Clear, Wheeze (negative), Crackles (negative), Rhonchi (negative), Non-Labored Respirations and Stridor (negative)
GI: Soft, Distended (Abdominal obesity), Non Tender and Normal Bowel Sounds
Neurology: Awake, Alert and Tremors (negative)
Skin: Warm, Dry, Cyanosis (negative) and Jaundice (negative)
Labs/Micro/Reports
Lab Data
01/30/25 03:18
01/30/25 03:18
[2025-01-30] MEDS: GLUCOPHAGE 1000 MG PO ×2 (08:28→16:54)
[2025-01-30] MEDS: LOW STRENGTH ASPIRIN 81 MG PO (08:28)
[2025-01-30] MEDS: AMARYL 4 MG PO (08:28)
[2025-01-30] MEDS: MUCINEX 600 MG PO ×2 (08:28→19:30)
[2025-01-30 08:29] LABS: Glucose - Point of Care 127 mg/dl (70-99)
[2025-01-30] MEDS: PROTONIX 40 MG PO (08:29)
[2025-01-30] MEDS: FARXIGA 10 MG PO (08:29)
[2025-01-30] MEDS: CRESTOR 20 MG PO (08:29)
[2025-01-30] MEDS: PACERONE 200 MG PO ×3 (08:29→22:30)
[2025-01-30] MEDS: LIDOCAINE 4% PATCH 1 PATCH TOPICAL (08:29)
[2025-01-30] MEDS: SENOKOT PO ×2 (08:30→19:25)
[2025-01-30] MEDS: NOVOLOG FLEXPEN-MODERATE RESISTANCE SC ×3 (08:30→16:54)
[2025-01-30] MEDS: BACTROBAN 2% OINTMENT 1 APPLIC NASAL (08:30)
[2025-01-30] MEDS: LOPRESSOR PO (08:36)
[2025-01-30] MEDS: ZOFRAN 4 MG IV ×2 (08:43→21:07)
[2025-01-30] MEDS: LOPRESSOR 25 MG PO ×2 (08:43→19:30)
--- NOTE | 2025-01-30 08:55 | PTCARENOTE ---
Assumed care of patient at 0700. Pt is awake, alert, and oriented. Pt remains SR with first degree AV block, HR 87 BP 167/[address] MARJAN aware, increased dose of Lopressor given per order. Pulse oximetry 95% on room air. Pt with loose bowel
movement this AM. Pt with complaints of nausea this morning s/p PO medications. PRN Zofran administered. Voiding in bathroom. Midsternal incision approximated and SUPERVISOR STATEMENT CLERKS. Right IJ cordis intact. Currently OOB in chair eating breakfast with no
complaints of nausea.
[2025-01-30] MEDS: LASIX 40 MG IV (10:17)
--- NOTE | 2025-01-30 11:45 | PTCARENOTE ---
In AM pt ambulated with cardiac rehab, while ambulating pt became diaphoretic. BP prior to ambulation 130/79 MAP 94, after returning to the chair BP 85/56 MAP 66. HR remained in the 70's. Pt reported feeling dizzy once back in the chair. CT MARJAN,
Kaylynn, made aware. After resting BP returned to 132/77 MAP 93. 40mg IV Lasix given per order. At this time pt remains SR with HR 70's-80's. BP 133/85 MAP 99. Pt ambulating to bathroom without issue.
--- NOTE | 2025-01-30 12:37 | W.PN.CD ---
Today's Communication / Plan
-
OOB in chair
ambulating when able had dizziness and low BP with ambulatin this morning
Impression / Plan
-
64 y/o female (patient of Dr. Sanchez) with hypertension, diabetes, hyperlipidemia, obesity, and bicuspid aortic valve with severe aortic stenosis is now s/p bio AVR with Dr. Landry 01/26/25
Senior Mechanical Technician: Dr Cullen Neves
s/p surgical bio AVR, Dr. Landry 01/26/25 (surgery for Bicuspid aortic valve with severe aortic stenosis)
-hemodynamically stable and in NSR.
-on ASA and prophylactic amiodarone
post-op anemia
-Improving. Continue to monitor.
HTN:
-monitor post-op. Started on beta-nimesh.
-on HCTZ and CCB as OP
- holding in setting of low BP and dizziness
HLD - statin
DM2 - tx per protocol
Subjective: stable encourage ambulation
Telemetry: Sinus rhythm. 3 beat run NSVT. Occasional SVT.
Physical Exam
Vital Signs/Labs
Vital Signs
Temp Pulse Resp BP Pulse Ox
97.9 F 80 18 136/74 96
01/30/25 11:30 01/30/25 12:00 01/30/25 11:30 01/30/25 12:00 01/30/25 11:30
01/29/25 01/30/25 01/31/25
06:59 06:59 06:59
Actual Weight 184 lb 15.485 oz 184 lb 8.43 oz
01/30/25 03:18
01/30/25 03:18
PT 18.7 Sec (11.4-14.6) H 01/26/25 15:45
INR 1.54 01/26/25 15:45
APTT 35.6 Sec (23.4-35.0) H 01/26/25 15:45
Magnesium 2.2 mg/dl (1.6-2.3) 01/30/25 03:18
Physical Exam
Constitutional: No acute distress and Comfortable
EENT: Anicteric
Cardiovascular: Rhythm & rate is regular and Pedal edema is absent
Respiratory: Respiratory effort normal and Lungs clear to auscul.
GI: Soft
Neuro/Psych: Alert and Oriented
Data Reviewed
-
Date of Service: January 30, 2025
EKG: Tracing Personally Visualized and interpreted (sr)
Echo: Report Reviewed by me
Labs: Labs Reviewed by me
[2025-01-30 13:32] LABS: Glucose - Point of Care 107 mg/dl (70-99)
[2025-01-30] MEDS: NSS IV (13:48)
--- NOTE | 2025-01-30 15:40 | PTCARENOTE ---
Pt remains SR with HR 80's. BP 144/84 MAP 102. Pulse oximetry 96% on room air. Pt with intermittent nausea but tolerating PO diet. Right IJ cordis d/c'd per order.
[2025-01-30] MEDS: AMARYL 2 MG PO (16:48)
[2025-01-30 16:55] LABS: Glucose - Point of Care 104 mg/dl (70-99)
--- NOTE | 2025-01-30 20:32 | PTCARENOTE ---
Pt. rec'd at beginning of shift ambulating back from bathroom, assist x 1 with weak but steady gait. AAOx3, VSS; NSR on the monitor. Lungs diminished; pulse ox on RA 92-94%, no SOB; deep breathing/IS encouraged. Sternal incision approximated
without drainage and CR; CT site dressing CDI. Abd . obese with positive bowel sounds, pt. states she's had 4-5 loose BM's today (Senefremot held). No complaints of pain at this time, pt. resting quietly in bed.
[2025-01-30 21:56] LABS: Glucose - Point of Care 166 mg/dl (70-99)
[2025-01-30] MEDS: IMODIUM 2 MG PO (21:58)
--- NOTE | 2025-01-30 23:08 | PTCARENOTE ---
Pt. had a loose BM then complained of nausea. Zofran and then Imodium given per Ed Pauly. Pt. reported nausea gone and then fell asleep. Pt. continues to sleep soundly. No other changes to assessment.
[2025-01-31] VITALS (9 sets, daily range): BP systolic 122–146; BP diastolic 68–84; BMI 35.5
--- NOTE | 2025-01-31 00:38 | W.PN.CT ---
Today's Communication / Plan
-
Plan:
-No issues overnight. Hemodynamically and neurologically intact �
-Off Dobutamine gtt 01/29/25 in the AM
-Increased Lopressor to 25 mg BID for hypertension
-Having diarrhea, Senokot held, prn Imodium
-Wt up 7 lbs from preop yesterday, check wt today, may need to minimize diuresis given diarrhea x 6 yesterday
-Encourage use of IS
-F/U/2-view cxr
-PW d/c'd on POD#2
-OOB into chair/Ambulate
-Home later today vs tomorrow
Assessment / Plan
-
- Bicuspid aortic valve morphology, severe aortic valve stenosis, symptomatic- s/p Surgical aortic valve replacement [23 mm Maldonado Inspiris Resilia bioprosthesis] by Dr. Landry on 01/26/25, pod #5
- Severe aortic valve stenosis, symptomatic
- Bicuspid valve morphology, type I
- Hypertension
- Hyperlipidemia
- Diabetes (A1c 7.6)
- Arthritis
- Acute postop blood loss anemia (transfused 1u PRBC)
- Acute postop thrombocytopenia (stable without active bleed)
- Acute postop atelectasis
- Acute postop hypovolemia with subsequent hypervolemia
- Acute postop diarrhea, requiring Imodium
Discussed patient care with: Cardiology, Nursing, Respiratory Therapy, Pharmacy and Care Team
Subjective
-
Date of Service: January 31, 2025
Pt c/o diarrhea yesterday, resolved after holding Senokot and administering Imodium
Objective Data
-
PT 18.7 Sec (11.4-14.6) H 01/26/25 15:45
INR 1.54 01/26/25 15:45
APTT 35.6 Sec (23.4-35.0) H 01/26/25 15:45
Vital Signs
Vital Signs
Temp Pulse Resp BP Pulse Ox
97.6 F 71 16 140/79 95
01/30/25 22:29 01/30/25 22:30 01/30/25 22:29 01/30/25 22:30 01/30/25 22:[address]
CT Intake/Output/Weight
01/30/25 01/30/25 01/31/25
06:59 18:59 06:59
Intake Total 700 / 980
Output Total 700 / 1325 650 / 650
Balance 0 / -345 -630 / -630
SaO2: 95 (RA)
Physical Exam
-
General: Awake, Oriented and AOx3
Cardiovascular: Regular rate & rhythm, No Murmurs, No Rub and No Gallop
Respiratory: Decreased Breath Sounds (at bases, otherwise clear )
Sternum: Stable
Incision: Clean, Dry, Intact and Dressing Intact
Extremities: Other (+trace edema)
Data Reviewed
-
Lab Results: Results Reviewed
Medications: Active Meds Reviewed
Chest X-Ray: Report Reviewed and Image Reviewed
ECG: Report Reviewed and Image Reviewed
[2025-01-31 03:56] LABS: Hematocrit 30.3 % (37.0-47.0); Hemoglobin 10.1 g/dL (12.0-16.0); Mean Corp Hgb Conc. 33.3 g/dL (33.0-37.0); Mean Corpuscular Volume 82.8 fL (81.0-99.0); Platelet Count 195 10^3/uL (130-400); Red Cell Dist. Width 15.6 % (11.5-14.5)
[2025-01-31 04:14] LABS: Blood Urea Nitrogen 15 mg/dl (7-17); Calcium 8.8 mg/dl (8.4-10.2); Carbon Dioxide 29 mmol/L (22-30); Chloride 103 mmol/L (98-107); Estimated Creatinine Clearance 88 ml/min; Glucose 88 mg/dl (70-99); Magnesium 2.0 mg/dl (1.6-2.3); Potassium 4.1 mmol/L (3.5-5.1); Sodium 139 mmol/L (135-145); eGFR > 60.00
[2025-01-31] MEDS: TYLENOL 975 MG PO ×3 (05:07→21:32)
--- NOTE | 2025-01-31 05:55 | PTCARENOTE ---
PT. OOB to chair this morning; CHG wiped and chest tube site dressing changed. Pt. states her nausea is gone, no further episodes of diarrhea overnight. Hungry, requesting a snack. Juice and crackers provided. Looking forward to breakfast this
morning.
[2025-01-31 08:16] LABS: Glucose - Point of Care 130 mg/dl (70-99)
[2025-01-31] MEDS: FARXIGA 10 MG PO (08:16)
[2025-01-31] MEDS: GLUCOPHAGE 1000 MG PO ×2 (08:16→16:38)
[2025-01-31] MEDS: CRESTOR 20 MG PO (08:16)
[2025-01-31] MEDS: PACERONE 200 MG PO ×3 (08:17→21:32)
[2025-01-31] MEDS: MUCINEX 600 MG PO ×2 (08:17→20:21)
[2025-01-31] MEDS: LOW STRENGTH ASPIRIN 81 MG PO (08:17)
[2025-01-31] MEDS: LOPRESSOR 25 MG PO ×2 (08:17→20:20)
[2025-01-31] MEDS: PROTONIX 40 MG PO (08:17)
[2025-01-31] MEDS: AMARYL 4 MG PO (08:17)
[2025-01-31] MEDS: NOVOLOG FLEXPEN-MODERATE RESISTANCE SC ×3 (08:18→16:38)
--- NOTE | 2025-01-31 09:19 | PTCARENOTE ---
Received patient for 7a-7p shift. Patient AAOx3, oob in chair. VSS, NSR on video game animator, Pox 97% room air. Tolerating po intake, voiding without issues. Pt ambulatory in room with 1 person assist. MSI incision potato grader, CT dressing c/d/i. PIV R AC
without issues. Medications administered as ordered. Patient had 2 view CXR done. Ambulated in gallagher 150 feet with 1 person assist. Instructed patient to call for assistance prior to ambulation, call mckinley in reach, patient verbalized understanding.
[2025-01-31] MEDS: LIDOCAINE 4% PATCH TOPICAL (11:02)
[2025-01-31] MEDS: LASIX 40 MG IV (11:03)
[2025-01-31 11:50] LABS: Glucose - Point of Care 115 mg/dl (70-99)
--- NOTE | 2025-01-31 11:57 | PTCARENOTE ---
Patient reassessed, assessment unchanged from previous. Blood glucose 115. VSS, NSR on technical training coordinator. IV lasix administered as ordered. Patient voiding without issues.
[2025-01-31] MEDS: ZOFRAN 4 MG IV (12:49)
[2025-01-31] MEDS: NSS IV (15:45)
[2025-01-31 16:37] LABS: Glucose - Point of Care 132 mg/dl (70-99)
[2025-01-31] MEDS: AMARYL 2 MG PO (16:38)
--- NOTE | 2025-01-31 19:29 | PTCARENOTE ---
Patient transferred from room 2268 to room 2249. Report given to IVU RN July, walking rounds complete. Patient transferred via wheelchair without issues.
[2025-01-31 21:35] LABS: Glucose - Point of Care 112 mg/dl (70-99)
--- NOTE | 2025-02-01 00:50 | PTCARENOTE ---
Received pt transferred from CVICU at change of shift. SR on tele, HR 60's-80's. pt denies any CP or SOB. Sternal incision site intact and WET PROCESS MILLER HEAD ASSISTANT. Sternal precautions maintained. Encouraged pt to call RN for assistance ambulating. Call mckinley within
reach.
--- NOTE | 2025-02-01 01:30 | W.PN.CT ---
Today's Communication / Plan
-
Plan:
-No issues overnight. Hemodynamically and neurologically intact �
-Off Dobutamine gtt 01/29/25 in the AM
-Increased Lopressor to 25 mg BID for hypertension
-Postop diarrhea has subsided after holding Senokot and receiving Imodium
-Wt up 5 lbs from preop yesterday, check wt today, cont. diuresis
-Encourage use of IS
-PW d/c'd on POD#2
-OOB into chair/Ambulate
-Home today
Assessment / Plan
-
- Bicuspid aortic valve morphology, severe aortic valve stenosis, symptomatic- s/p Surgical aortic valve replacement [23 mm Maldonado Inspiris Resilia bioprosthesis] by Dr. Landry on 01/26/25, pod #6
- Severe aortic valve stenosis, symptomatic
- Bicuspid valve morphology, type I
- Hypertension
- Hyperlipidemia
- Diabetes (A1c 7.6)
- Arthritis
- Acute postop blood loss anemia (transfused 1u PRBC)
- Acute postop thrombocytopenia (stable without active bleed)
- Acute postop atelectasis
- Acute postop hypovolemia with subsequent hypervolemia
- Acute postop diarrhea, requiring Imodium
Discussed patient care with: Cardiology, Nursing, Respiratory Therapy, Pharmacy and Care Team
Subjective
-
Date of Service: February 01, 2025
C/O mild incisional pain. Diarrhea has subsided, ambulating without difficulty
Objective Data
-
Lab Results
01/31/25 03:39
PT 18.7 Sec (11.4-14.6) H 01/26/25 15:45
INR 1.54 01/26/25 15:45
APTT 35.6 Sec (23.4-35.0) H 01/26/25 15:45
Vital Signs
Vital Signs
Temp Pulse Resp BP Pulse Ox
98.2 F 66 16 136/73 96
01/31/25 22:40 01/31/25 23:00 01/31/25 22:40 01/31/25 22:40 01/31/25 22:40
CT Intake/Output/Weight
01/31/25 01/31/25 02/01/25
06:59 18:59 06:59
Intake Total 480 / 500 480 / 480
Balance 480 / -150 480 / 480
SaO2: 96 (RA)
Physical Exam
-
General: Awake, Oriented and AOx3
Cardiovascular: Regular rate & rhythm, No Murmurs, No Rub and No Gallop
Respiratory: Decreased Breath Sounds (at bases, otherwise clear )
Sternum: Stable
Incision: Clean, Dry, Intact and Dressing Intact
Extremities: Other (+trace edema)
Data Reviewed
-
Lab Results: Results Reviewed
Medications: Active Meds Reviewed
Chest X-Ray: Report Reviewed and Image Reviewed
ECG: Report Reviewed and Image Reviewed
[2025-02-01 03:53] VITALS: BP 129/115
[2025-02-01 03:57] VITALS: BP 146/76
[2025-02-01 04:09] VITALS: BMI 35.1
[2025-02-01 05:17] LABS: Blood Urea Nitrogen 14 mg/dl (7-17); Calcium 8.7 mg/dl (8.4-10.2); Carbon Dioxide 28 mmol/L (22-30); Chloride 103 mmol/L (98-107); Estimated Creatinine Clearance 87 ml/min; Glucose 105 mg/dl (70-99); Magnesium 1.9 mg/dl (1.6-2.3); Potassium 3.8 mmol/L (3.5-5.1); Sodium 135 mmol/L (135-145); eGFR > 60.00
[2025-02-01] MEDS: TYLENOL 975 MG PO (05:40)
--- NOTE | 2025-02-01 07:30 | PN.DE.MGMTRT ---
Insulin Management
- -
02/01/2025: Diabetes Management Follow up
Patient admitted 01/26 for aortic valve replacement. PMH: HTN, HLD, diabetes, arthritis, severe aortic valve stenosis. Prior to admission was taking glimepiride 4 mg daily, Jardiance 25 mg daily, metformin 1000 BID and Ozempic once weekly. A!C on
admission 7.6%, Cr 0.6, eGFR > 60.
Patient is awake alert and oriented sitting up in bed, offers no complaints, able to discuss diabetes care plan. Dtr at bedside very supportive.
POD # 6 s/p Aortic valve replacement. Transitioned off critical care glycemic protocol 01/30 to her home oral regimen.
Glucose stable and in range, 115 to 132, has NOT required any corrective insulin with meals, fasting 105 V, 101 POC.
Will make no changes to current regimen: Glimepiride 4 mg at breakfast and 2 mg at dinner, Metformin 1000 mg BID, Farxiga 10 mg daily (takes Jardiance 25 mg @ home), moderate corrective insulin with meals.
Pt states that her insurance may not cover Jardiance, will ask CM to verify co-pay for Jardiance
Discussed with nurse. Will cont to follow.
Meds at discharge: Glimepiride 4 mg at breakfast and 2 mg at dinner, Metformin 1000 mg BID, Jardiance 25 mg
Diabetes History
- -
Type of Diabetes: 2
Pre-Admission Diabetes Regimen
02/01/25
04:03
Creatinine 0.6
Lab Results
Hemoglobin A1c 7.6 % (4.0-5.6) H 01/19/25 12:10
Insulin Pump Settings
IP Diabetes Regimen
01/31/25 01/31/25 01/31/25
08:14 11:49 16:35
Glucose
POC Glucose 130 H 115 H 132 H
01/31/25 02/01/25
21:33 04:03
Glucose 105 H
POC Glucose 112 H
Meal type: Breakfast
Amount consumed: 90%
Patient Education
[2025-02-01 08:07] VITALS: BP 156/75
[2025-02-01 08:13] LABS: Glucose - Point of Care 101 mg/dl (70-99)
--- NOTE | 2025-02-01 08:25 | W.PN.CD ---
Today's Communication / Plan
-
Resume HCTZ and Amlodipine 5mg
Home today
Impression / Plan
-
64 y/o female (patient of Dr. Sanchez) with hypertension, diabetes, hyperlipidemia, obesity, and bicuspid aortic valve with severe aortic stenosis is now s/p bio AVR with Dr. Landry 01/26/25
Bookkeepers Supervisor: Dr Cullen Neves
s/p surgical bio AVR, Dr. Landry 01/26/25 (surgery for Bicuspid aortic valve with severe aortic stenosis)
-hemodynamically stable and in NSR.
-on ASA and prophylactic amiodarone
HTN:
-Started on beta-nimesh.
-on HCTZ and CCB as OP
-resume amlodipine 5mg daily and HCTZ 25mg daily
HLD - statin
DM2 - tx per protocol
Subjective: stable, no complaints
Telemetry: Sinus rhythm
Physical Exam
Vital Signs/Labs
Vital Signs
Temp Pulse Resp BP Pulse Ox
98.0 F 72 16 146/76 96
02/01/25 03:54 02/01/25 06:00 02/01/25 03:54 02/01/25 03:57 02/01/25 03:54
01/31/25 02/01/25 02/02/25
06:59 06:59 06:59
Actual Weight 181 lb 14.102 oz 179 lb 10.828 oz
01/31/25 03:39
02/01/25 04:03
PT 18.7 Sec (11.4-14.6) H 01/26/25 15:45
INR 1.54 01/26/25 15:45
APTT 35.6 Sec (23.4-35.0) H 01/26/25 15:45
Magnesium 1.9 mg/dl (1.6-2.3) 02/01/25 04:03
Physical Exam
Constitutional: No acute distress and Comfortable
Cardiovascular: Rhythm & rate is regular, Pedal edema is absent, S1S2 is normal and Murmur/rub/gallop absent
Respiratory: Respiratory effort normal and Lungs clear to auscul.
Neuro/Psych: AO x 3
Other: Other (sternotomy without erythema, induration or fluctuance)
Data Reviewed
-
Date of Service: February 01, 2025
Medical Decision Making: Reviewed Test Results, Test Interpretation and Review of Case with other Provider
EKG: Tracing Personally Visualized and interpreted
Echo: Report Reviewed by me
Labs: Labs Reviewed by me
--- NOTE | 2025-02-01 08:42 | W.DCSUMMARY ---
Discharge Summary
Discharge Data
Date of Admission: 01/26/25
Date of Discharge: 02/01/25
-
Pending Results: No
Hospital Course
Primary care physician: Dr. Moon Cam MD
Outpatient cardroom plastic card grader: Dr. Christophe aSnchez
Inpatient consultants: [facility], Hand Former/Furniture And Bedding Inspector, Diabetic Nurse Practitioner
Procedures:
1. SAVR (#23mm Inspiris Resilia tissue valve) on 01/26/[address] Luiz Landry
Primary Diagnosis:
1. Bicuspid Aortic Valve with Severe Aortic Stenosis
Secondary Diagnoses:
1. Acute postop blood loss anemia (s/p 1u pRBCs)
2. Acute postop thrombocytopenia (stable without active bleed)
3. Acute postop atelectasis
4. Acute postop hypovolemia with subsequent hypervolemia
5. Acute postop diarrhea, requiring anemia
6. Hypertension
7. Hyperlipidemia
8. Type 2 Diabetes Mellitus (A1C 7.6%)
9. Arthritis
HPI: Marva Mejia is a 64-year-old female with a PMHx of bicuspid aortic valve with severe aortic stenosis who presented for outpatient consultation regarding her worsening shortness of breath. Patient was referred for AVR with Dr. Landry. Please
refer to preoperative H&P for complete presentation prior to surgery.
Hospital course: On 01/26/25, patient was electively admitted and underwent a SAVR (#23mm Inspiris Resilia tissue valve) with Dr. Luiz Landry. Please see surgeons report for complete dictation of surgery. Intraoperative SHIRA reported preoperative
severe , bicuspid valve, with mild AI, normal LV size/function, mild LVH, stage I diastolic dysfunction with atheroma of aorta less that 5 mm and mild calcifications, mild TR, and mild MR; postoperative s/p AVR with well sealed valve, trivial to
mild perivalvular leak at 4 PM which disappeared after protamine, mild to moderate MR, mild to moderate TR, normal LV size/function NRWMA, EF 60-65%.
In progressive fashion, inotropic support, vasopressor support, central lines, chest tubes, and epicardial pacing wires were discontinued. Postoperative coarse was complicated by acute postoperative blood-loss anemia in which she was transfused
1-unit of pRBCs. Patient further endured acute postop diarrhea which was treated with Imodium and discontinuation of postoperative laxatives. An insulin drip was initiated following surgery. Diabetic Nurse Practitioner was consulted for assistance
in transitioning patient off of insulin drip in which changes to her prior medical regiment were not advised. Her diabetic medical regiment continued with Metformin 1000 mg BID, Jardiance 25 mg daily, and glimepiride 4 mg BID. Case management was
consulted to assess cost of Jardiance/Farxiga and patient reported inability to continue medication upon discharge due to socioeconomic constraints.
On postoperative day 6, patient was tolerating her diet, ambulating, and hemodynamically stable for discharge. Pain was well-controlled with regiment of Tylenol 650 mg q6hPRN. She was 2 lbs about her preoperative weight with a discharge leonides of
81.5 kg and preoperative weight of 80.3 kg. She was discharged with Lasix 20 mg daily for 5-days with Potassium Chloride 10 mEq daily. Instruction was provided to check her weight daily and parameters to call the office. Home regiment of
hydrochlorothiazide 25 mg was discontinued upon discharge and can be further reassess upon follow-up with cardiology. Metoprolol Succinate 50 mg daily was continued upon discharge for postoperative a-fib prophylaxis. Norvasc was restarted at 5 mg
daily for hypertension. Patient was discharged home with plan to follow-up with Dr. Landry in 4-weeks following surgery. She will follow-up with her primary cardroom plastic card grader and primary care provider within the nest 4-6 weeks. Transitional Care Nursing
will follow-up with the patient in 2-3 days following discharge. The importance of antibiotics prior to dental procedures for endocarditis prophylaxis was further shared with patient upon discharge.
Home medication changes:
- See list provided below.
Discharge Plan
-
Patient Disposition: Home (Routine Discharge)
Discharge Diagnosis/Procedures: Bicuspid Aortic Valve Stenosis/ s/p AVR (#23mm Inspiris Resilia tissue valve) on 10/21/[address] Luiz Landry
Condition: Good
Diet: Low Sodium, Diabetic, Carb Controlled and Restrict fluids to 48 oz
Activity: No strenuous activity
Additional Activity: No lifting, pushing, or pulling anything greater than 15 pounds for 1 month.
Driving Restrictions: Not until seen by your Dr
Bathing Restrictions: OK to Shower
Other Services: Cardiac Rehab
Wound Care: Shower daily with soap and water.
Do not put any lotions, creams, or powders on procedural sites.
Keep procedural sites clean, dry, and open to air.
Specialty Instructions: Weigh Daily- Call MD for wt gain/loss 3 lbs overnight/5 lbs in 1 week
Activity Restrictions/Additional Instructions:
ACTIVITY:
-No strenuous activity: no heavy lifting, pushing, pulling anything over 15 pounds for one month
-continue to use stairs as tolerated
DRIVING RESTRICTIONS:
-No driving for one month or until approved by your surgeon
WOUND CARE:
-Shower daily. Use soap & water.
-No lotions, creams or powders on incision area.
DIET:
- Continue a low fat/low cholesterol diet.
- If you are diabetic, continue carb controlled diet.
CARDIAC REHAB:
- Please make appointment to start in 5-6 weeks with your local hospital program. (See Cardiac Rehabilitation Discharge Booklet).
- Please review/call to make appointments for Phase II Cardiac Rehab: (provided to family)
1) [facility]: (12 min from home)
2) [facility]: (18 min from home)
3) [facility]: (19 min from home)
SPECIALTY INSTRUCTIONS:
-Weigh yourself daily. Call your physician for any weight gain/loss of 3 lbs overnight or 5 lbs in one week.
-REPORT any clicking noise or uneven appearance of your sternum to your surgeon immediately.
-If you smoke, you are instructed to quit. The [place] smoking hotline phone number is [phone]
Referrals:
CT Transitional Care Nurse [Outside]
Referral Note: The Cardiothoracic Transitional Care Nurse will call you to set up a visit in 1-2 days.
Lucy Pimentel CRNP [Specified Professional Personl, Cardiology] - 03/08/25 9:40 am
Luiz Landry MD [Active, Cardiac Surgery] - 03/01/25 2:45 pm
Moon Cam MD [Family Provider, Family Practice]
Referral Note: Please call to schedule follow-up appointment in 4-6 weeks.
Prescriptions:
New
metformin 1,000 mg Tablet
1,000 mg PO BID@0800,1700 Qty: 60 2RF
metoprolol succinate 50 mg Tablet Extended Release 24 Hr
50 mg PO DAILY Qty: 60 0RF
furosemide 20 mg Tablet
20 mg PO DAILY 5 Days Qty: 5 0RF
potassium chloride 10 mEq Tablet,Er Particles/Crystals
10 meq PO DAILY 5 Days Qty: 5 0RF
acetaminophen 325 mg Tablet
650 mg PO Q6HPRN PRN (Reason: mild pain,headache,temp >101F ) Qty: 0 0RF
amlodipine 5 mg Tablet
5 mg PO DAILY Qty: 60 0RF
Continued
glimepiride 4 mg Tablet
4 mg PO BID
omeprazole 20 mg Capsule,Delayed Release(Dr/Ec)
20 mg PO DAILY
aspirin 81 mg Tablet
81 mg PO DAILY
rosuvastatin 20 mg Tablet
20 mg PO DAILY
cyanocobalamin (vitamin B-12) 1,000 mcg Tablet
1,000 mcg PO DAILY
Ozempic 2 mg/dose (8 mg/3 mL) Pen Injector
2 mg SC QWEEK
Discontinued
triamcinolone acetonide 0.5 % Cream
1 applic TOPICAL BID
amlodipine 5 mg Tablet
10 mg PO DAILY
metformin 1,000 mg Tablet
1,000 mg PO DAILY
hydrochlorothiazide 25 mg Tablet
25 mg PO DAILY
Jardiance 25 mg Tablet
25 mg PO DAILY
acetaminophen [Tylenol] 325 mg Tablet
325 mg PO ONCE PRN (Reason: pain)
Discharge Orders:
Discharge Patient (As Directed); Ordered 02/01/25
Ordered By: Maritza Heck
Care Plan Goals
Care Plan Goals:
Problem: Readiness for enhanced knowledge related to diagnosis and treatment plan
Goal: Understand your diagnosis and treatment plan needs, including medications if applicable.
Instructions: Know your diagnosis, underlying causes and treatment plan options, including medications if applicable. Consult with your health care team to learn about your diagnosis and treatment plan, including medications if applicable.
Discharge Date and Time
Print Language: Torsten
[2025-02-01] MEDS: KCL 40 MEQ PO (09:16)
[2025-02-01] MEDS: GLUCOPHAGE 1000 MG PO (09:17)
[2025-02-01] MEDS: NOVOLOG FLEXPEN-MODERATE RESISTANCE SC (09:17)
[2025-02-01] MEDS: CRESTOR 20 MG PO (09:17)
[2025-02-01] MEDS: LOW STRENGTH ASPIRIN 81 MG PO (09:17)
[2025-02-01] MEDS: PACERONE 200 MG PO (09:17)
[2025-02-01] MEDS: MUCINEX 600 MG PO (09:18)
[2025-02-01] MEDS: LIDOCAINE 4% PATCH 1 PATCH TOPICAL (09:18)
[2025-02-01] MEDS: AMARYL 4 MG PO (09:18)
[2025-02-01] MEDS: FARXIGA 10 MG PO (09:18)
[2025-02-01] MEDS: PROTONIX 40 MG PO (09:18)
[2025-02-01] MEDS: KCL 20 MEQ PO (09:20)
[2025-02-01] MEDS: LASIX 40 MG PO (09:20)
[2025-02-01] MEDS: LOPRESSOR PO (09:32)
[2025-02-01 10:39] VITALS: BP 141/73
[2025-02-01] MEDS: FLUZONE HIGH-DOSE 2025-26 0.5 ML IM (10:40)
[2025-02-01] MEDS: NORVASC 5 MG PO (10:40)
--- NOTE | 2025-02-01 11:28 | PTCARENOTE ---
Patient discharged to home. Instructions reviewed with patient and family, they verbalized understanding. IV and telemetry removed. Patient escorted to [facility] in a wheelchair
[2025-02-02 09:44] LABS: Glucose - Point of Care 129 mg/dl (70-99)
[2025-02-02 11:51] LABS: B.E. - POC 1.7 mmol/L; Blood Urea Nitrogen - POC 14 mg/dl (3-120); Chloride - POC 108 mmol/L (96-111); Creatinine - POC 0.71 mg/dl (0.3-1.0); Glucose - POC 135 mg/dl (70-99); HCO3 - POC 27 mmol/L (21-28); Hematocrit - POC 27 % PCV (37-47); Hemodilution- POC Yes; Hemoglobin Calculated - POC 9.3; Ionized Calcium - POC 1.20 mmol/L (1.15-1.33); Lactate - POC 1.74 mmol/L (0.36-0.75); O2 Saturation %Calculated-POC 97.3 % (94-98); PCO2 - POC 44 mmHg (35-48); PO2 - POC 95 mmHg (83-108); Potassium - POC 3.7 mmol/L (3.5-5.1); Sodium - POC 144 mmol/L (136-145); Specimen Type - POC Arterial; pH - POC 7.39 (7.35-7.45)
== END 2025-02-01 11:34 | disposition home or self-care (01) | DRG 220 ==
LOC: IVU 08:02
PROVIDERS: Anesthesiology; Clinical Nurse Specialist Acute Care; Nurse Practitioner; Nurse Practitioner Primary Care; Physician Assistant Medical; ADMITTING PHYSICIAN Thoracic Surgery (Cardiothoracic Vascular Surgery); FAMILY PHYSICIAN Internal Medicine; OTHER PHYSICIAN Internal Medicine Cardiovascular Disease; OTHER PHYSICIAN Internal Medicine Critical Care Medicine
PROC: 02RF08Z Replacement of Aortic Valve with Zooplastic Tissue, Open Approach (ICD-10-PCS; 2025-01-26)
PROC: 5A1221Z Performance of Cardiac Output, Continuous (ICD-10-PCS; 2025-01-26)
PROC: B24BZZ4 Ultrasonography of Heart with Aorta, Transesophageal (ICD-10-PCS; 2025-01-26)
PROC: 30233N1 Transfusion of Nonautologous Red Blood Cells into Peripheral Vein, Percutaneous Approach (ICD-10-PCS; 2025-01-27)
PROC: 3E02340 Introduction of Influenza Vaccine into Muscle, Percutaneous Approach (ICD-10-PCS; 2025-02-01)
DX: I35.0 Nonrheumatic aortic (valve) stenosis (principal); D62 Acute posthemorrhagic anemia; J98.11 Atelectasis; D69.59 Other secondary thrombocytopenia; E86.1 Hypovolemia; E87.70 Fluid overload, unspecified; R19.7 Diarrhea, unspecified; I10 Essential (primary) hypertension; E78.00 Pure hypercholesterolemia, unspecified; E11.65 Type 2 diabetes mellitus with hyperglycemia; R00.1 Bradycardia, unspecified; E04.2 Nontoxic multinodular goiter; I70.0 Atherosclerosis of aorta; I27.20 Pulmonary hypertension, unspecified; M19.90 Unspecified osteoarthritis, unspecified site; Z79.84 Long term (current) use of oral hypoglycemic drugs; Z23 Encounter for immunization
CPT/HCPCS: 36415; 71045; 71046; 80048; 80053; 81003; 81015; 82248; 82330; 82565; 82805; 82810; 82947; 82962; 83036; 83735; 84132; 84302; 84520; 85014; 85018; 85025; 85027; 85049; 85610; 85730; 86803; 86850; 86900; 86901; 86920; 87070; 87086; 88305; 88311; 90662; 93005; 93312; 93320; 93325; 94002; 94003; G0008; J1250; J2916; P9016; P9047